=== PATIENT | female | born 1975 | race Caucasian/White ===

== ENCOUNTER 2019-11-16 11:20 | Emergency (ER) | payer SELFPAY ==
[2019-11-16] MEDS ORDERED: ONDANSETRON HCL INJ/PF 4 MG/2 ML SDV IV ONE (12:17)
[2019-11-16] MEDS ORDERED: KETOROLAC TROMETHAMINE INJ/PF 30 MG/1 ML SDV IV ONE (12:17)
--- NOTE | 2019-11-16 12:20 | ER Document Report ---
ED Medical Screen (RME) - General Chief Complaint: Abdominal Pain Stated Complaint: VOMITING/DIARRHEA Time Seen by Provider: 11/16/19 12:13 Mode of Arrival: Ambulatory Information source: Patient Notes: 44-year-old female with history of Crohn's and osteogenic imperfecta presents to the emergency department with complaints of left lower quad abdominal pain, nausea vomiting diarrhea for the past week. Reports she just moved here from [place]. She took a [employer] bus here and they lost all her luggage. She reports her medication was in her luggage. I have greeted and performed a rapid initial assessment of this patient. A comprehensive ED assessment and evaluation of the patient, analysis of test results and completion of the medical decision making process will be conducted by additional ED providers. TRAVEL OUTSIDE OF THE [place] IN LAST 30 DAYS: No - Related Data Allergies/Adverse Reactions: No Known Allergies Allergy (Unverified 11/16/19 12:13) Home Medications: Zofran. Effexor Past Medical History - Social History Chew tobacco use (# tins/day): No Frequency of alcohol use: None Drug Abuse: None Physical Exam - Vital signs Vitals: Temp Pulse Resp BP Pulse Ox 99.1 F 95 16 142/93 H 99 11/16/19 11:46 11/16/19 11:46 11/16/19 11:46 11/16/19 11:46 11/16/19 11:46 Course - Vital Signs Vital signs: Temp Pulse Resp BP Pulse Ox 99.1 F 95 16 142/93 H 99 11/16/19 11:46 11/16/19 11:46 11/16/19 11:46 11/16/19 11:46 11/16/19 11:46
[2019-11-16 12:36] LABS: ABSOLUTE BASOPHILS # (AUTO) 0.1 10^3/uL (0.0-0.2); ABSOLUTE EOSINOPHILS # (AUTO) 0.1 10^3/uL (0.0-0.6); ABSOLUTE LYMPHOCYTES (AUTO) 2.6 10^3/uL (0.5-4.7); ABSOLUTE MONOCYTES (AUTO) 0.7 10^3/uL (0.1-1.4); ABSOLUTE NEUT (AUTO) 5.8 10^3/uL (1.7-8.2); BASOPHILS % (AUTO) 1.1 % (0-2); EOSINOPHILS % (AUTO) 0.6 % (0-6); HEMOGLOBIN 15.3 g/dL (12.0-15.5); LYMPHOCYTES % (AUTO) 28.1 % (13-45); MEAN CORPUSCULAR HEMOGLOBIN 30.5 pg (27.0-33.4); MEAN CORPUSCULAR VOLUME 90 fl (80-97); MONOCYTES % (AUTO) 7.2 % (3-13); PLATELET COUNT 333 10^3/uL (150-450); RED BLOOD COUNT 5.01 10^6/uL (3.72-5.28); RED CELL DISTRIBUTION WIDTH 16.2 % (11.5-14.0); TOTAL CELLS COUNTED % (AUTO) 100 %; WHITE BLOOD COUNT 9.2 10^3/uL (4.0-10.5)
[2019-11-16 12:58] LABS: ALBUMIN 4.1 g/dL (3.5-5.0); ALKALINE PHOSPHATASE 84 U/L (38-126); ANION GAP 10 (5-19); ASPARTATE AMINO TRANSFERASE 44 U/L (14-36); BILIRUBIN,DIRECT 0.2 mg/dL (0.0-0.4); BILIRUBIN,TOTAL 0.5 mg/dL (0.2-1.3); BLOOD UREA NITROGEN 9 mg/dL (7-20); CALCIUM 9.6 mg/dL (8.4-10.2); CARBON DIOXIDE 23 mmol/L (22-30); CHLORIDE 104 mmol/L (98-107); GLUCOSE 91 mg/dL (75-110); POTASSIUM 4.1 mmol/L (3.6-5.0); TOTAL PROTEIN 7.2 g/dL (6.3-8.2)
[2019-11-16 13:08] LABS: APPEARANCE,URINE CLOUDY; BILIRUBIN,URINE NEGATIVE (NEGATIVE); COLOR,URINE YELLOW; GLUCOSE, URINE NEGATIVE (NEGATIVE); KETONES,URINE NEGATIVE (NEGATIVE); LEUKOCYTE ESTERASE,URINE TRACE (NEGATIVE); NITRITE,URINE NEGATIVE (NEGATIVE); PROTEIN,URINE 30 mg/dL (NEGATIVE); URINE SPECIFIC GRAVITY 1.016
[2019-11-16] MEDS ORDERED: NORMAL SALINE 1000 ML 1,000 ML IV ONE (13:33)
[2019-11-16] MEDS ORDERED: MORPHINE SULFATE 10 MG/ML INJ IV ONE (13:46)
--- NOTE | 2019-11-16 13:50 | ER Document Report ---
ED GI/ - General Chief Complaint: Abdominal Pain Stated Complaint: VOMITING/DIARRHEA Time Seen by Provider: 11/16/19 12:13 Primary Care Provider: NUSRAT RAMSEY MD [ACTIVE STAFF] - Follow up in 3-5 days Mode of Arrival: Ambulatory Notes: Patient is a 44-year-old female who presents to the emergency department with a chief complaint of left lower quadrant abdominal pain. Her symptoms started about a week ago. Patient has a history of Crohn's disease and her medications were lost in travel from [place] to here. Patient has been vomiting and states that there was a little bit of blood tinge in her vomitus. Patient states that she has not been able to keep anything down. Patient has history of a hysterectomy and 3 C-sections in the past. Denies any other abdominal surgeries. Patient is currently on Effexor, Prilosec, Zofran, and alprazolam, but states she lost her medications in travel. TRAVEL OUTSIDE OF THE [place] IN LAST 30 DAYS: No - Related Data Allergies/Adverse Reactions: No Known Allergies Allergy (Unverified 11/16/19 12:13) Home Medications: Zofran. Effexor Past Medical History - General Information source: Patient - Social History Smoking Status: Current Every Day Smoker Chew tobacco use (# tins/day): No Frequency of alcohol use: None Drug Abuse: None Family History: Reviewed & Not Pertinent Patient has suicidal ideation: No Patient has homicidal ideation: No Review of Systems - Review of Systems Notes: REVIEW OF SYSTEMS: CONSTITUTIONAL : Denies recent illness. Denies recent unintentional weight loss. Denies fever, chills, or sweats. EENT: Denies eye, ear, throat, or mouth pain, discharge, or symptoms. Denies nasal or sinus congestion. CARDIOVASCULAR: Denies chest pain. RESPIRATORY: Denies shortness of breath, cough, congestion, difficulty breathing, or wheezing. GASTROINTESTINAL: See HPI. GENITOURINARY: Denies difficulty urinating, burning, blood in urine, urgency or frequency. MUSCULOSKELETAL: Denies neck and back pain. Denies joint pain or swelling. SKIN: Denies rash, itchiness, or lesions HEMATOLOGIC : Denies easy bruising or bleeding. LYMPHATIC: Denies swollen, painful, enlarged glands. NEUROLOGICAL: Denies no numbness or tingling denies weakness. Denies headache. Denies altered mental status. Denies alteration in speech. PSYCHIATRIC: Denies stress, anxiety, alteration in sleep patterns, or dep ression. All other systems reviewed and negative. Physical Exam - Vital signs Vitals: Temp Pulse Resp BP Pulse Ox 99.1 F 95 16 142/93 H 99 11/16/19 11:46 11/16/19 11:46 11/16/19 11:46 11/16/19 11:46 11/16/19 11:46 - Notes Notes: PHYSICAL EXAMINATION: GENERAL: Appears well, healthy, well-nourished, no acute distress. HEAD: Normocephalic, atraumatic. EYES: PERRL, conjunctiva normal, all extraocular movements intact, sclera nonicteric ENT: Moist mucous membranes. NECK: Supple, no noticeable swelling, redness, rash. Normal range of motion. LUNGS: Equal breath sounds bilaterally and clear to auscultation. No wheezes rales or rhonchi. CARDIOVASCULAR: S1-S2, regular rate, regular rhythm. Radial pulses 2+, normal. ABDOMEN: Normoactive bowel sounds. Soft, mildly tender left lower quadrant abdomen, no guarding, no rebound tenderness, and no masses palpated. EXTREMITIES: Normal strength and range of motion, no pitting or edema. No cyanosis. NEUROLOGICAL: Moves all extremities upon command. Strength 5/5 in all extremities. PSYCH: Normal mood, normal affect. SKIN: Warm, dry. No rash, lesions, ulcerations noted. Normal skin turgor. Course - Re-evaluation Re-evalutation: 11/16/19 15:19 CT of the abdomen pelvis are negative for any acute findings. She has a fatty liver and right hip AVN, which is chronic. Patient denies any pain in that right hip. Urinalysis shows trace amount of leukocytes, but she also has 31 squamous cells, which is most likely contaminated specimen. Her sodium was 136 and this was corrected via IV fluids. Her AST is mildly elevated, most likely due to her fatty liver disease. Her chemistries are unremarkable. Patient states that she feels better after receiving fluids and pain medication. At this time, she will be referred to GI to help with her Crohn's disease. I will refill her Prilosec and Zofran. She is in agreement with this plan. I asked her if she was satisfied with her care and if she had any questions. She states that she is satisfied and she did not have any additional questions. Follow-up precautions were given. Verbal discharge instructions were given to the patient. They verbalized understanding. They are stable for discharge. - Vital Signs Vital signs: Temp Pulse Resp BP Pulse Ox 98 F 74 16 137/82 H 100 11/16/19 15:33 11/16/19 15:33 11/16/19 15:33 11/16/19 15:33 11/16/19 15:33 - Laboratory Result Diagrams: 11/16/19 12:29 11/16/19 12:29 Laboratory results interpreted by me: 11/16/19 11/16/19 11/16/19 12:29 12:29 12:39 RDW 16.2 H Sodium 136.8 L AST 44 H Urine Protein 30 H Urine Urobilinogen 2.0 H Ur Leukocyte Esterase TRACE H Discharge - Discharge Clinical Impression: Abdominal pain Qualifiers: Abdominal location: left lower quadrant Qualified Code(s): R10.32 - Left lower quadrant pain Condition: Stable Disposition: HOME, SELF-CARE Additional Instructions: You were seen today in the emergency department for left lower quadrant abdominal pain. Your CT did not show any abnormalities at this time. Please follow-up with GI. Please reestablish a primary care provider here in the area. Please continue your Prilosec daily and your Zofran as needed. Prescriptions: Omeprazole Magnesium [Prilosec Otc] 40 mg PO DAILY #60 tablet. Ondansetron [Zofran Odt 4 mg Tablet] 1 - 2 tab PO Q4H PRN #20 tab.rapdis PRN Reason: For Nausea/Vomiting Referrals: NUSRAT RAMSEY MD [ACTIVE STAFF] - Follow up in 3-5 days
--- NOTE | 2019-11-16 14:54 | RADIOLOGY REPORT (SQ) ---
EXAM DESCRIPTION: CT ABD/PELVIS WITH IV ONLY COMPLETED DATE/TIME: 11/16/2019 2:37 pm REASON FOR STUDY: HX CROHNS ABD PAIN N/V/D COMPARISON: None. TECHNIQUE: CT scan of the abdomen and pelvis performed using helical scanning technique with dynamic intravenous contrast injection. No oral contrast. Images reviewed with lung, soft tissue, and bone windows. Reconstructed coronal and sagittal MPR images reviewed. Delayed images for evaluation of the urinary system also acquired. All images stored on PACS. All CT scanners at this facility use dose modulation, iterative reconstruction, and/or weight based d osing when appropriate to reduce radiation dose to as low as reasonably achievable (ALARA). [facility]: Dose Right [facility]: CareDose [facility]: Dose Right [facility]: Teradose 4D [facility]: [place] CONTRAST TYPE AND DOSE: contrast/concentration: Isovue 350.00 mg/ml; Total Contrast Delivered: 100.0 ml; Total Saline Delivered: 72.0 ml RENAL FUNCTION: None required. The patient is less than 50 years old. RADIATION DOSE: CT Rad equipment meets quality standard of care and radiation dose reduction techniq ues were employed. CTDIvol: 15.6 - 19.8 mGy. DLP: 1989 mGy-cm.. LIMITATIONS: None. FINDINGS: LOWER CHEST: No significant findings. No nodules or infiltrates. LIVER: Diffusely fatty. SPLEEN: Normal size. No focal lesions. PANCREAS: No masses. No significant calcifications. No adjacent inflammation or peripancreatic fluid collections. Pancreatic duct not dilated. GALLBLADDER: No identified stones by CT criteria. No inflammatory changes to suggest cholecystitis. ADRENAL GLANDS: No significant masses or asymmetry. RIGHT KIDNEY AND URETER: No solid masses. No significant calcification. No hydronephrosis or hydroure ter. LEFT KIDNEY AND URETER: No solid masses. No significant calcification. No hydronephrosis or hydrouret er. AORTA AND VESSELS: No aneurysm. No dissection. Renal arteries, SMA, celiac without stenosis. RETROPERITONEUM: No retroperitoneal adenopathy, hemorrhage or masses. BOWEL AND PERITONEAL CAVITY: No masses or inflammatory changes. No free fluid or peritoneal masses. APPENDIX: Normal. PELVIS: No mass. No free fluid. Normal bladder. ABDOMINAL WALL: No masses. No hernias. BONES: No fracture or bone lesion. Subtle AVN in the right femoral head, no subchondral collapse. . OTHER: No other significant finding. IMPRESSION: 1. No acute abdominopelvic abnormality. 2. Fatty liver. 3. Right hip AVN. TECHNICAL DOCUMENTATION: JOB ID: [id number] Quality ID # [id number]: Final reports with documentation of one or more dose reduction techniques (e.g., Au tomated exposure control, adjustment of the mA and/or kV according to patient size, use of iterative reconstruction technique) 2010 [employer]- All Rights Reserved Reading location - IP/workstation name: [email or web address]
[2019-11-16 15:34] VITALS: BP 137/82
== END 2019-11-16 15:34 | disposition home or self-care (01) ==
LOC: ER 11:20
DX: R10.32 Left lower quadrant pain (principal); F17.200 Nicotine dependence, unspecified, uncomplicated; K76.0 Fatty (change of) liver, not elsewhere classified; Z90.710 Acquired absence of both cervix and uterus
CPT/HCPCS: 99284; 96361; 96374; 96375; 36415; 83690; 85025; 80053; 81001; 74177; J1885; J2270; J2405; J7030

== ENCOUNTER 2020-03-23 10:55 | Inpatient (IN) | payer SELFPAY ==
[2020-03-23 11:15] LABS: ABSOLUTE BASOPHILS # (AUTO) 0.1 10^3/uL (0.0-0.2); ABSOLUTE LYMPHOCYTES (AUTO) 2.9 10^3/uL (0.5-4.7); ABSOLUTE MONOCYTES (AUTO) 0.8 10^3/uL (0.1-1.4); ABSOLUTE NEUT (AUTO) 7.1 10^3/uL (1.7-8.2); BASOPHILS % (AUTO) 0.7 % (0-2); EOSINOPHILS % (AUTO) 0.1 % (0-6); HEMATOCRIT 40.4 % (36.0-47.0); HEMOGLOBIN 14.2 g/dL (12.0-15.5); LYMPHOCYTES % (AUTO) 26.4 % (13-45); MEAN CORPUSCULAR HEMOGLOBIN 32.2 pg (27.0-33.4); MEAN CORPUSCULAR VOLUME 92 fl (80-97); MONOCYTES % (AUTO) 7.3 % (3-13); PLATELET COUNT 414 10^3/uL (150-450); RED CELL DISTRIBUTION WIDTH 14.8 % (11.5-14.0); SEGMENTED NEUTROPHILS % (AUTO) 65.5 % (42-78); TOTAL CELLS COUNTED % (AUTO) 100 %; WHITE BLOOD COUNT 10.9 10^3/uL (4.0-10.5)
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
[2020-03-23 11:22] LABS: INTERNATIONAL RATION (INR) 1.01; PROTHROMBIN TIME 13.3 SEC (11.4-15.4)
[2020-03-23 11:23] LABS: PARTIAL THROMBOPLASTIN TIME 26.1 SEC (23.5-35.8)
[2020-03-23] MEDS ORDERED: ONDANSETRON HCL INJ/PF 4 MG/2 ML SDV IV ONE (11:31)
[2020-03-23] MEDS ORDERED: MORPHINE SULFATE 10 MG/ML INJ IV ONE ×2 (11:31→14:34)
[2020-03-23 11:35] LABS: ALCOHOL 24 mg/dL (NONE DETECTED); ALKALINE PHOSPHATASE 133 U/L (38-126); ASPARTATE AMINO TRANSFERASE 148 U/L (14-36); BILIRUBIN,TOTAL 0.3 mg/dL (0.2-1.3); CALCIUM 9.9 mg/dL (8.4-10.2); CREATINE KINASE 219 U/L (30-135); GLUCOSE 133 mg/dL (75-110); POTASSIUM 4.8 mmol/L (3.6-5.0); TOTAL PROTEIN 7.3 g/dL (6.3-8.2)
[2020-03-23 11:39] LABS: CARBON DIOXIDE 17 mmol/L (22-30); CHLORIDE 94 mmol/L (98-107)
[2020-03-23 11:40] LABS: BLOOD UREA NITROGEN < 2 mg/dL (7-20)
[2020-03-23 11:41] LABS: ANION GAP 20 (5-19)
[2020-03-23 11:46] LABS: CREATINE KINASE MB 2.85 ng/mL (<4.55)
[2020-03-23 11:49] LABS: URINE AMPHETAMINES SCREEN NEGATIVE; URINE BARBITURATES SCREEN NEGATIVE; URINE BENZODIAZEPINES SCREEN NEGATIVE; URINE COCAINE SCREEN NEGATIVE; URINE MARIJUANA (THC) SCREEN NEGATIVE; URINE METHADONE SCREEN NEGATIVE; URINE PHENCYCLIDINE SCREEN NEGATIVE
[2020-03-23 11:50] LABS: TROPONIN I < 0.012 ng/mL
--- NOTE | 2020-03-23 12:01 | RADIOLOGY REPORT (SQ) ---
EXAM DESCRIPTION: PELVIS AP IMAGES COMPLETED DATE/TIME: 03/23/2020 11:53 am REASON FOR STUDY: Fall with right buttock pain COMPARISON: None. NUMBER OF VIEWS: One view TECHNIQUE: AP Pelvis LIMITATIONS: None. FINDINGS: MINERALIZATION: Normal. HIPS: No acute fracture or dislocation. No worrisome bone lesions. PELVIS AND SACRUM: No acute fracture or dislocation. No worrisome bone lesions. PUBIS AND ISCHIUM: No acute fracture. LOWER LUMBAR SPINE: No significant findings as visualized. SOFT TISSUES: No findings. OTHER: Right pelvic phleboliths. IMPRESSION: NEGATIVE STUDY OF THE PELVIS. COMMENT: Pelvic fractures are often occult on plain radiographs. If strong clinical suspicion for f racture, recommend CT or MR. TECHNICAL DOCUMENTATION: JOB ID: [id number] 2010 [employer]- All Rights Reserved Reading location - IP/workstation name: [email or web address]
--- NOTE | 2020-03-23 12:01 | RADIOLOGY REPORT (SQ) ---
EXAM DESCRIPTION: CHEST SINGLE VIEW IMAGES COMPLETED DATE/TIME: 03/23/2020 11:53 am REASON FOR STUDY: Chest pain COMPARISON: None. EXAM PARAMETERS: NUMBER OF VIEWS: One view. TECHNIQUE: Single frontal radiographic view of the chest acquired. RADIATION DOSE: NA LIMITATIONS: None. FINDINGS: LUNGS AND PLEURA: No opacities, masses or pneumothorax. No pleural effusion. MEDIASTINUM AND HILAR STRUCTURES: No masses. Contour normal. HEART AND VASCULAR STRUCTURES: Heart normal in size. Normal vasculature. BONES: No acute findings. HARDWARE: None in the chest. OTHER: No other significant finding. IMPRESSION: NO ACUTE RADIOGRAPHIC FINDING IN THE CHEST. TECHNICAL DOCUMENTATION: JOB ID: [id number] 2010 [employer]- All Rights Reserved Reading location - IP/workstation name: [email or web address]
[2020-03-23] MEDS ORDERED: NORMAL SALINE 1000 ML 1,000 ML IV ONE (12:25)
[2020-03-23] MEDS ORDERED: KETOROLAC TROMETHAMINE INJ/PF 30 MG/1 ML SDV IV ONE (13:30)
[2020-03-23] MEDS ORDERED: PROCHLORPERAZINE EDISYLATE INJ 10 MG/2 ML VIAL IV ONE (13:32)
[2020-03-23] MEDS ORDERED: LORAZEPAM INJ 2 MG/1 ML VIAL IV ONE (14:07)
[2020-03-23] MEDS ORDERED: PROMETHAZINE HCL INJ 25 MG/1 ML VIAL IV ONE (14:33)
[2020-03-23 15:00] LABS: APPEARANCE,URINE CLEAR; BILIRUBIN,URINE NEGATIVE (NEGATIVE); COLOR,URINE STRAW; GLUCOSE, URINE NEGATIVE (NEGATIVE); KETONES,URINE NEGATIVE (NEGATIVE); PROTEIN,URINE NEGATIVE (NEGATIVE); URINE SPECIFIC GRAVITY 1.003; UROBILINOGEN,URINE NEGATIVE mg/dL (<2.0)
--- NOTE | 2020-03-23 15:22 | RADIOLOGY REPORT (SQ) ---
EXAM DESCRIPTION: CTA CHEST IMAGES COMPLETED DATE/TIME: 03/23/2020 3:06 pm REASON FOR STUDY: Chest pain/tachycardia COMPARISON: None. TECHNIQUE: CT scan of the chest performed using helical scanning technique with dynamic intravenous contrast injection. Images reviewed with lung, soft tissue and bone windows. Reconstructed coronal and sagittal MPR images reviewed. Additional 3 dimensional post-processing performed to develop Maximal Intensity Projection images (MT P). All images stored on PACS. All CT scanners at this facility use dose modulation, iterative reconstruction, and/or weight based d osing when appropriate to reduce radiation dose to as low as reasonably achievable (ALARA). [facility]: Dose Right [facility]: CareDose [facility]: Dose Right [facility]: Teradose 4D [facility]: [employer] CONTRAST TYPE AND DOSE: contrast/concentration: Isovue 350.00 mg/ml; Total Contrast Delivered: 97.0 ml; Total Saline Delivered: 70.0 ml Contrast bolus adequate for pulmonary arteries and aorta. RENAL FUNCTION: BUN 2 creatinine 0.5 RADIATION DOSE: CT Rad equipment meets quality standard of care and radiation dose reduction techniq ues were employed. CTDIvol: 6.6 - 23.2 mGy. DLP: 2889 mGy-cm. . LIMITATIONS: None. FINDINGS: LUNGS AND PLEURA: No masses, infiltrates, or pneumothorax. No pleural effusions or pleura l calcifications. AORTA AND GREAT VESSELS: No aneurysm. No dissection. HEART: No pericardial effusion. No significant coronary artery calcifications. PULMONARY ARTERIES: No emboli visualized in the main pulmonary arteries or the segmental branches. HILAR AND MEDIASTINAL STRUCTURES: No identified masses or abnormal nodes. HARDWARE: None in the chest. UPPER ABDOMEN: See separate report of the CT of the abdomen. THYROID AND OTHER SOFT TISSUES: No masses. No adenopathy. BONES: No acute or significant finding. 3D MIPS: Confirm above findings. OTHER: No other significant finding. IMPRESSION: There is no pulmonary embolus. There is no aortic aneurysm or dissection. No acute fin ding in the thorax. COMMENT: Quality ID # 436: Final reports with documentation of one or more dose reduction techniques (e.g., Automated exposure control, adjustment of the mA and/or kV according to patient size, use of iterative reconstruction technique) TECHNICAL DOCUMENTATION: JOB ID: [id number] 2010 [employer]- All Rights Reserved Reading location - IP/workstation name: [email or web address]
--- NOTE | 2020-03-23 15:35 | RADIOLOGY REPORT (SQ) ---
EXAM DESCRIPTION: CT ABD/PELVIS WITH IV ONLY IMAGES COMPLETED DATE/TIME: 03/23/2020 3:06 pm REASON FOR STUDY: Trauma COMPARISON: 11/16/2019 TECHNIQUE: CT scan of the abdomen and pelvis performed using helical scanning technique with dynamic intravenous contrast injection. No oral contrast. Images reviewed with lung, soft tissue, and bone windows. Reconstructed coronal and sagittal MPR images reviewed. Delayed images for evaluation of the urinary system also acquired. All images stored on PACS. All CT scanners at this facility use dose modulation, iterative reconstruction, and/or weight based d osing when appropriate to reduce radiation dose to as low as reasonably achievable (ALARA). [facility]: Dose Right [facility]: CareDose [facility]: Dose Right [facility]: Teradose 4D [facility]: [employer] CONTRAST TYPE AND DOSE: 97 mL Omnipaque 350- low osmolar. RENAL FUNCTION: BUN 2 creatinine 0.5 RADIATION DOSE: . LIMITATIONS: None. FINDINGS: LOWER CHEST: See separate report of the CT of the chest. LIVER: The liver is diffusely hypoattenuating. No masses. SPLEEN: Normal size. No focal lesions. PANCREAS: No masses. No significant calcifications. No adjacent inflammation or peripancreatic fluid collections. Pancreatic duct not dilated. GALLBLADDER: No identified stones by CT criteria. No inflammatory changes to suggest cholecystitis. ADRENAL GLANDS: No significant masses or asymmetry. RIGHT KIDNEY AND URETER: Lobulated kidney. No solid masses. No significant calcifications. No hy dronephrosis or hydroureter. LEFT KIDNEY AND URETER: Lobulated kidney. No solid masses. No significant calcifications. No hydr onephrosis or hydroureter. AORTA AND VESSELS: No aneurysm. No dissection. Renal arteries, SMA, celiac without stenosis. RETROPERITONEUM: No retroperitoneal adenopathy, hemorrhage or masses. BOWEL AND PERITONEAL CAVITY: No obvious bowel mass or inflammation. APPENDIX: Not identified. PELVIS: No mass. No free fluid. Normal bladder. ABDOMINAL WALL: No masses. No hernias. BONES: No significant or acute findings. OTHER: No other significant finding.2 IMPRESSION: Hepatic steatosis. No other significant finding in the abdomen or pelvis. TECHNICAL DOCUMENTATION: JOB ID: [id number] Quality ID # [id number]: Final reports with documentation of one or more dose reduction techniques (e.g., Au tomated exposure control, adjustment of the mA and/or kV according to patient size, use of iterative reconstruction technique) 2010 [employer]- All Rights Reserved Reading location - IP/workstation name: [email or web address]
[2020-03-23] MEDS ORDERED: MAGNESIUM HYDROXIDE SUSP 30 ML UDCUP PO PRN (17:11)
[2020-03-23] MEDS ORDERED: MAG HYDROX/AL HYDROX/SIMETH SUSP 30 ML UDCUP PO PRN (17:11)
[2020-03-23] MEDS ORDERED: PROMETHAZINE HCL INJ 25 MG/1 ML VIAL IV PRN (17:11)
[2020-03-23] MEDS ORDERED: NORMAL SALINE 1000 ML 1,000 ML IV PRN (17:11)
[2020-03-23] MEDS ORDERED: BISACODYL 5 MG TABEC PO PRN (17:22)
[2020-03-23] MEDS ORDERED: LORAZEPAM INJ 2 MG/1 ML VIAL IV PRN (17:30)
[2020-03-23 17:39] LABS: ARTERIAL BLOOD BASE EXCESS -2.7 mmol/L; ARTERIAL BLOOD H2CO3 0.95 mmol/L (1.05-1.35); ARTERIAL BLOOD HCO3 20.6 mmol/L (20-24); ARTERIAL BLOOD PCO2 31.6 mmHg (35-45); ARTERIAL BLOOD PH 7.43 (7.35-7.45); ARTERIAL BLOOD PO2 105.4 mmHg (80-100); ARTERIAL BLOOD TOTAL CO2 21.6 mmol/L (21-25)
[2020-03-23] MEDS ORDERED: TRAZODONE HCL 50 MG TABLET PO PRN (17:41)
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
[2020-03-23 17:51] LABS: ARTERIAL BLOOD FIO2 ROOM AIR
[2020-03-23] MEDS ORDERED: NORMAL SALINE 1000 ML 1,000 ML with POTASSIUM CHLORIDE 20 MEQ, MAGNESIUM SULFATE 8 MEQ,... IV SCH ×10 (18:00)
[2020-03-23 19:00] LABS: ANION GAP 10 (5-19); BLOOD UREA NITROGEN 3 mg/dL (7-20); CALCIUM 8.9 mg/dL (8.4-10.2); CARBON DIOXIDE 26 mmol/L (22-30); CHLORIDE 96 mmol/L (98-107); GLUCOSE 80 mg/dL (75-110); POTASSIUM 4.9 mmol/L (3.6-5.0); SALICYLATE 12.4 mg/dL (2.0-20.0)
[2020-03-23] MEDS: OXYCODONE-ACETAMINOPHEN 5-325 MG TABLET PO PRN (19:18)
[2020-03-23] MEDS: PANTOPRAZOLE SODIUM 40 MG VIAL IV SCH (21:34)
[2020-03-23 23:33] LABS: ALBUMIN 2.8 g/dL (3.5-5.0); ALKALINE PHOSPHATASE 90 U/L (38-126); ANION GAP 7 (5-19); ASPARTATE AMINO TRANSFERASE 96 U/L (14-36); BILIRUBIN,TOTAL 0.3 mg/dL (0.2-1.3); BLOOD UREA NITROGEN 6 mg/dL (7-20); CALCIUM 8.7 mg/dL (8.4-10.2); CARBON DIOXIDE 22 mmol/L (22-30); CHLORIDE 101 mmol/L (98-107); GLUCOSE 104 mg/dL (75-110); POTASSIUM 4.7 mmol/L (3.6-5.0); TOTAL PROTEIN 5.6 g/dL (6.3-8.2)
[2020-03-24] MEDS: OXYCODONE-ACETAMINOPHEN 5-325 MG TABLET PO PRN ×5 (05:18→23:24)
[2020-03-24 06:26] LABS: ABSOLUTE EOSINOPHILS # (AUTO) 0.1 10^3/uL (0.0-0.6); ABSOLUTE LYMPHOCYTES (AUTO) 2.4 10^3/uL (0.5-4.7); ABSOLUTE MONOCYTES (AUTO) 0.4 10^3/uL (0.1-1.4); ABSOLUTE NEUT (AUTO) 3.9 10^3/uL (1.7-8.2); BASOPHILS % (AUTO) 0.5 % (0-2); EOSINOPHILS % (AUTO) 0.8 % (0-6); HEMATOCRIT 30.7 % (36.0-47.0); LYMPHOCYTES % (AUTO) 35.7 % (13-45); MEAN CORPUSCULAR HEMOGLOBIN 32.4 pg (27.0-33.4); MEAN CORPUSCULAR HGB CONC 35.1 g/dL (32.0-36.0); MEAN CORPUSCULAR VOLUME 92 fl (80-97); MONOCYTES % (AUTO) 5.5 % (3-13); PLATELET COUNT 247 10^3/uL (150-450); RED BLOOD COUNT 3.33 10^6/uL (3.72-5.28); RED CELL DISTRIBUTION WIDTH 15.2 % (11.5-14.0); SEGMENTED NEUTROPHILS % (AUTO) 57.5 % (42-78); TOTAL CELLS COUNTED % (AUTO) 100 %; WHITE BLOOD COUNT 6.7 10^3/uL (4.0-10.5)
[2020-03-24 06:28] LABS: HEMOGLOBIN 10.8 g/dL (12.0-15.5)
[2020-03-24 06:50] LABS: ANION GAP 5 (5-19); BLOOD UREA NITROGEN 7 mg/dL (7-20); CALCIUM 8.3 mg/dL (8.4-10.2); CARBON DIOXIDE 26 mmol/L (22-30); CHLORIDE 101 mmol/L (98-107); GLUCOSE 83 mg/dL (75-110); POTASSIUM 4.9 mmol/L (3.6-5.0)
--- NOTE | 2020-03-24 07:44 | EKG REPORT ---
SEVERITY:- OTHERWISE NORMAL ECG - SINUS TACHYCARDIA : Confirmed by: Halley Valle MD 24-Mar-2020 07:42:51
[2020-03-24] MEDS: PANTOPRAZOLE SODIUM 40 MG VIAL IV SCH ×2 (09:05→21:08)
[2020-03-24] MEDS: SENNOSIDES/DOCUSATE 8.6-50 MG 1 EACH TABLET PO SCH (09:05)
[2020-03-24] MEDS ORDERED: MORPHINE SULFATE 10 MG/ML INJ ONE (10:34)
[2020-03-24] MEDS ORDERED: MORPHINE SULFATE 10 MG/ML INJ IV ONE (11:00)
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
[2020-03-24] MEDS: SULFAMETHOXAZOLE/TRIMETHOPRIM 800-160 MG TABLET PO SCH ×2 (16:06→21:10)
[2020-03-24] MEDS: THIAMINE HCL 100 MG TABLET PO SCH (16:06)
[2020-03-24 17:01] LABS: ALBUMIN 2.9 g/dL (3.5-5.0); ALKALINE PHOSPHATASE 99 U/L (38-126); ASPARTATE AMINO TRANSFERASE 82 U/L (14-36); BILIRUBIN,TOTAL 0.5 mg/dL (0.2-1.3); TOTAL PROTEIN 5.4 g/dL (6.3-8.2)
[2020-03-24] MEDS: KETOROLAC TROMETHAMINE INJ/PF 30 MG/1 ML SDV IV PRN (21:09)
[2020-03-24] MEDS ORDERED: OLANZAPINE 5 MG TABLET PO SCH (22:00)
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
[2020-03-25] MEDS: OXYCODONE-ACETAMINOPHEN 5-325 MG TABLET PO PRN ×2 (04:57→09:39)
[2020-03-25 05:41] LABS: ABSOLUTE EOSINOPHILS # (AUTO) 0.1 10^3/uL (0.0-0.6); ABSOLUTE MONOCYTES (AUTO) 0.2 10^3/uL (0.1-1.4); ABSOLUTE NEUT (AUTO) 2.6 10^3/uL (1.7-8.2); BASOPHILS % (AUTO) 0.5 % (0-2); HEMATOCRIT 28.3 % (36.0-47.0); HEMOGLOBIN 9.8 g/dL (12.0-15.5); LYMPHOCYTES % (AUTO) 40.9 % (13-45); MEAN CORPUSCULAR HEMOGLOBIN 32.3 pg (27.0-33.4); MEAN CORPUSCULAR HGB CONC 34.5 g/dL (32.0-36.0); MEAN CORPUSCULAR VOLUME 94 fl (80-97); PLATELET COUNT 219 10^3/uL (150-450); RED BLOOD COUNT 3.02 10^6/uL (3.72-5.28); RED CELL DISTRIBUTION WIDTH 15.4 % (11.5-14.0); SEGMENTED NEUTROPHILS % (AUTO) 51.6 % (42-78); TOTAL CELLS COUNTED % (AUTO) 100 %
[2020-03-25 06:07] LABS: ANION GAP 6 (5-19); BLOOD UREA NITROGEN 12 mg/dL (7-20); CALCIUM 8.1 mg/dL (8.4-10.2); CARBON DIOXIDE 25 mmol/L (22-30); CHLORIDE 102 mmol/L (98-107); GLUCOSE 96 mg/dL (75-110); POTASSIUM 4.1 mmol/L (3.6-5.0)
[2020-03-25] MEDS: KETOROLAC TROMETHAMINE INJ/PF 30 MG/1 ML SDV IV PRN (06:56)
[2020-03-25] MEDS: SENNOSIDES/DOCUSATE 8.6-50 MG 1 EACH TABLET PO SCH (09:24)
[2020-03-25] MEDS: PANTOPRAZOLE SODIUM 40 MG VIAL IV SCH (09:41)
[2020-03-25] MEDS: THIAMINE HCL 100 MG TABLET PO SCH (09:41)
[2020-03-25] MEDS: SULFAMETHOXAZOLE/TRIMETHOPRIM 800-160 MG TABLET PO SCH (09:41)
[2020-03-25] MEDS ORDERED: MULTIVITAMIN TABLET PO SCH (10:00)
[2020-03-25 11:16] VITALS: BP 134/74
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
== END 2020-03-25 11:34 | disposition home or self-care (01) | DRG 923 ==
LOC: ER 10:55 → EH 16:33 → 3N 20:10
PROVIDERS: ADMIT Hospitalist; ATTEND Hospitalist
DX: T74.11XA Adult physical abuse, confirmed, initial encounter (principal); E87.2 Acidosis; E87.1 Hypo-osmolality and hyponatremia; N39.0 Urinary tract infection, site not specified; K92.1 Melena; K50.90 Crohn's disease, unspecified, without complications; T39.091A Poisoning by salicylates, accidental (unintentional), initial encounter; S30.1XXA Contusion of abdominal wall, initial encounter; S80.12XA Contusion of left lower leg, initial encounter; S00.12XA Contusion of left eyelid and periocular area, initial encounter; S00.11XA Contusion of right eyelid and periocular area, initial encounter; R74.0 Nonspecific elevation of levels of transaminase and lactic acid dehydrogenase [LDH]; T51.0X1A Toxic effect of ethanol, accidental (unintentional), initial encounter; B96.20 Unspecified Escherichia coli [E. coli] as the cause of diseases classified elsewhere; E66.9 Obesity, unspecified; F10.20 Alcohol dependence, uncomplicated; S30.0XXA Contusion of lower back and pelvis, initial encounter; F17.200 Nicotine dependence, unspecified, uncomplicated; F41.9 Anxiety disorder, unspecified; M54.9 Dorsalgia, unspecified; R11.2 Nausea with vomiting, unspecified; I25.10 Atherosclerotic heart disease of native coronary artery without angina pectoris; Y92.9 Unspecified place or not applicable; Z79.899 Other long term (current) drug therapy; Z91.02 Food additives allergy status
CPT/HCPCS: 36415; 71045; 71275; 72170; 74177; 80048; 80053; 80076; 80307; 81001; 82550; 82553; 82803; 83605; 83690; 83735; 84484; 85025; 85610; 85730; 86850; 86900; 86901; 87040; 87070; 87086; 87088; 87186; 93005; 93010; 96361; 96374; 96375; 96376; 99285; C9113; J0780; J1885; J2060; J2270; J2405; J2550; J3411; J3475; J3480; J3490; J7030

== ENCOUNTER 2020-03-31 09:39 | Emergency (ER) | payer SELFPAY ==
[2020-03-31] MEDS ORDERED: LORAZEPAM INJ 2 MG/1 ML VIAL IV ONE (09:58)
[2020-03-31] MEDS ORDERED: NORMAL SALINE 1000 ML 1,000 ML IV ONE ×3 (09:59→13:08)
[2020-03-31 10:06] LABS: ABSOLUTE LYMPHOCYTES (AUTO) 2.4 10^3/uL (0.5-4.7); ABSOLUTE MONOCYTES (AUTO) 0.6 10^3/uL (0.1-1.4); BASOPHILS % (AUTO) 0.7 % (0-2); EOSINOPHILS % (AUTO) 0.7 % (0-6); HEMATOCRIT 35.8 % (36.0-47.0); HEMOGLOBIN 12.1 g/dL (12.0-15.5); MEAN CORPUSCULAR HEMOGLOBIN 32.2 pg (27.0-33.4); MEAN CORPUSCULAR HGB CONC 33.9 g/dL (32.0-36.0); MEAN CORPUSCULAR VOLUME 95 fl (80-97); MONOCYTES % (AUTO) 11.4 % (3-13); PLATELET COUNT 352 10^3/uL (150-450); RED BLOOD COUNT 3.77 10^6/uL (3.72-5.28); RED CELL DISTRIBUTION WIDTH 15.8 % (11.5-14.0); SEGMENTED NEUTROPHILS % (AUTO) 40.2 % (42-78); TOTAL CELLS COUNTED % (AUTO) 100 %
[2020-03-31 10:12] LABS: INTERNATIONAL RATION (INR) 0.91; PROTHROMBIN TIME 12.2 SEC (11.4-15.4)
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
[2020-03-31 10:25] LABS: VENOUS BLOOD HCO3 24.5 mmol/L (20-32); VENOUS BLOOD PCO2 28.9 mmHg (35-63); VENOUS BLOOD PH 7.55 (7.30-7.42)
[2020-03-31 10:28] LABS: ALBUMIN 3.5 g/dL (3.5-5.0); ALCOHOL 129 mg/dL (NONE DETECTED); ALKALINE PHOSPHATASE 94 U/L (38-126); ANION GAP 13 (5-19); ASPARTATE AMINO TRANSFERASE 95 U/L (14-36); BILIRUBIN,TOTAL 0.7 mg/dL (0.2-1.3); BLOOD UREA NITROGEN 6 mg/dL (7-20); CALCIUM 8.5 mg/dL (8.4-10.2); CARBON DIOXIDE 25 mmol/L (22-30); CHLORIDE 95 mmol/L (98-107); GLUCOSE 139 mg/dL (75-110); POTASSIUM 3.7 mmol/L (3.6-5.0); TOTAL PROTEIN 6.5 g/dL (6.3-8.2)
[2020-03-31 10:29] LABS: ACETAMINOPHEN < 10 ug/mL (10-30); SALICYLATE < 1.0 mg/dL (2.0-20.0)
[2020-03-31] MEDS ORDERED: METOCLOPRAMIDE HCL INJ/PF 10 MG/2 ML SDV IV ONE (10:39)
--- NOTE | 2020-03-31 10:40 | RADIOLOGY REPORT (SQ) ---
EXAM DESCRIPTION: CHEST SINGLE VIEW IMAGES COMPLETED DATE/TIME: 03/31/2020 10:22 am REASON FOR STUDY: cp COMPARISON: AP view of the chest from 03/23/2020. EXAM PARAMETERS: NUMBER OF VIEWS: One view. TECHNIQUE: An AP view of the chest was obtained. RADIATION DOSE: NA LIMITATIONS: None. FINDINGS: LUNGS AND PLEURA: No consolidation, pleural effusion or pneumothorax. MEDIASTINUM AND HILAR STRUCTURES: No mediastinal or hilar contour abnormality. HEART AND VASCULAR STRUCTURES: The cardiac silhouette and pulmonary vasculature are within normal sandoval its. BONES: No acute findings. HARDWARE: None in the chest. OTHER: No other finding. IMPRESSION: No acute cardiopulmonary process. TECHNICAL DOCUMENTATION: JOB ID: [id number] 2010 [employer]- All Rights Reserved Reading location - IP/workstation name: [email or web address]
[2020-03-31 10:43] LABS: AMORPHOUS SEDIMENT,URINE TRACE /HPF; APPEARANCE,URINE CLOUDY; BILIRUBIN,URINE NEGATIVE (NEGATIVE); COLOR,URINE YELLOW; GLUCOSE, URINE NEGATIVE (NEGATIVE); KETONES,URINE NEGATIVE (NEGATIVE); PROTEIN,URINE 30 mg/dL (NEGATIVE); URINE SPECIFIC GRAVITY 1.012; UROBILINOGEN,URINE NEGATIVE mg/dL (<2.0)
[2020-03-31] MEDS ORDERED: MORPHINE SULFATE 10 MG/ML INJ IV ONE (11:11)
[2020-03-31] MEDS ORDERED: ONDANSETRON HCL INJ/PF 4 MG/2 ML SDV IV ONE (11:18)
--- NOTE | 2020-03-31 13:19 | RADIOLOGY REPORT (SQ) ---
EXAM DESCRIPTION: CT ABD/PELVIS WITH IV ONLY IMAGES COMPLETED DATE/TIME: 03/31/2020 12:56 pm REASON FOR STUDY: pain right flank/large hematoma COMPARISON: CT of the abdomen and pelvis from 03/23/2020. TECHNIQUE: CT scan of the abdomen and pelvis performed using helical scanning technique with dynamic intravenous contrast injection. No oral contrast. Images reviewed with lung, soft tissue, and bone windows. Reconstructed coronal and sagittal MPR images reviewed. Delayed images for evaluation of the urinary system also acquired. All images stored on PACS. All CT scanners at this facility use dose modulation, iterative reconstruction, and/or weight based d osing when appropriate to reduce radiation dose to as low as reasonably achievable (ALARA). [facility]: Dose Right [facility]: CareDose [facility]: Dose Right [facility]: Teradose 4D [facility]: Coffee Meets Bagel CONTRAST TYPE AND DOSE: Contrast/concentration: Isovue 350.00 mg/ml; Total Contrast Delivered: 90.0 ml; Total Saline Delivered: 70.0 ml RENAL FUNCTION: GFR > 60. RADIATION DOSE: CT Rad equipment meets quality standard of care and radiation dose reduction techniq ues were employed. CTDIvol: 15.3 - 19.5 mGy. DLP: 1907 mGy-cm. LIMITATIONS: None. FINDINGS: LOWER CHEST: No acute findings. LIVER: Hepatic steatosis. The portal veins are patent. There is no hepatic mass. SPLEEN: No splenomegaly or splenic mass. PANCREAS: No acute abnormality of the pancreas. GALLBLADDER: No abnormality that is apparent on CT. ADRENAL GLANDS: No mass or asymmetry. RIGHT KIDNEY AND URETER: No solid masses. No calcifications. No hydronephrosis or hydroureter. LEFT KIDNEY AND URETER: No solid masses. No calcifications. No hydronephrosis or hydroureter. AORTA AND VESSELS: No aneurysm or dissection of the abdominal aorta. RETROPERITONEUM: No retroperitoneal adenopathy, hemorrhage or mass. BOWEL AND PERITONEAL CAVITY: Colonic diverticulosis without diverticulitis. There is no bowel obstru ction, bowel wall thickening or pericolonic/ perienteric inflammation. There is no mesenteric adenop athy, free intraperitoneal fluid or mesenteric/ omental inflammation. APPENDIX: Normal. PELVIS: No abnormality. ABDOMINAL WALL: Subcutaneous hematoma in the right gluteal region that has decreased in size from 03/05 (it measures 6.1 x 2.3 cm compared to 7.4 x 3.2 cm on the prior CT). The diffuse stranding of the subcutaneous fat in the right gluteal region is unchanged. BONES: No acute fracture. OTHER: No other finding. IMPRESSION: 1. Subcutaneous hematoma in the right gluteal region that has decreased in size from (is measures 6.1 x 2.3 cm compared to 7.4 x 3.2 cm on the prior CT). 2. Hepatic steatosis. 3. Colonic diverticulosis without diverticulitis. TECHNICAL DOCUMENTATION: JOB ID: [id number] Quality ID # [id number]: Final reports with documentation of one or more dose reduction techniques (e.g., Au tomated exposure control, adjustment of the mA and/or kV according to patient size, use of iterative reconstruction technique) 2010 [employer]- All Rights Reserved Reading location - IP/workstation name: [email or web address]
[2020-03-31] MEDS ORDERED: LORAZEPAM 1 MG TABLET PO ONE (14:17)
[2020-03-31 14:35] VITALS: BP 152/108
--- NOTE | 2020-03-31 19:16 | EKG REPORT ---
SEVERITY:- BORDERLINE ECG - SINUS TACHYCARDIA BORDERLINE INFERIOR Q WAVES : Confirmed by: Alexx Castano MD 31-Mar-2020 19:15:26
== END 2020-03-31 14:32 | disposition home or self-care (01) ==
LOC: ER 09:39
DX: S30.1XXA Contusion of abdominal wall, initial encounter (principal); S80.11XA Contusion of right lower leg, initial encounter; S30.0XXA Contusion of lower back and pelvis, initial encounter; S20.229A Contusion of unspecified back wall of thorax, initial encounter; M25.559 Pain in unspecified hip; Y09 Assault by unspecified means; R07.9 Chest pain, unspecified; R19.7 Diarrhea, unspecified; F10.10 Alcohol abuse, uncomplicated; R00.0 Tachycardia, unspecified; R51 Headache; R53.81 Other malaise; R53.1 Weakness; R05 Cough; R06.02 Shortness of breath; F17.200 Nicotine dependence, unspecified, uncomplicated; Z91.048 Other nonmedicinal substance allergy status; E86.0 Dehydration
CPT/HCPCS: 93005; 99284; 96361; 96374; 96375; 36415; 87040; 82962; 80307 ×3; 83605; 83690; 85025; 85610; 81025; 80053; 81001; 84484; 82803; 71045; 74177; 93010; J2765; J2270; J2060; J2405; J7030

== ENCOUNTER 2020-04-09 13:55 | Emergency (ER) | payer SELFPAY ==
[2020-04-09] MEDS ORDERED: KETOROLAC TROMETHAMINE INJ/PF 30 MG/1 ML SDV IV ONE (15:41)
[2020-04-09] MEDS ORDERED: NORMAL SALINE 1000 ML 1,000 ML IV ONE ×2 (15:52→16:58)
--- NOTE | 2020-04-09 15:57 | ER Document Report ---
ED General - General Chief Complaint: Altered Mental Status Stated Complaint: ALTERED MENTAL STATUS Time Seen by Provider: 04/09/20 15:31 Notes: CHIEF COMPLAINT: Abdominal pain HPI: Patient is a poor historian. History is obtained from the patient but also obtained from EMS notes. A 45-year-old female found in her vehicle intoxicated today by EMS. Patient apparently told EMS that she is homeless and has been living in her car and has been drinking wine since yesterday. Patient tells me that she is only had a small amount of alcohol to drink will not clarify the amount, she denies any drug use. Patient states she has a history of Crohn's disease has not had a flareup in several years and complaining about right-sided abdominal pain. No vomiting no definitive fever ROS: See HPI - all other systems were reviewed and are otherwise negative Constitutional: no fever Eyes: no drainage, no blurred vision ENT: no runny nose, no sore throat Cardiovascular: no chest pain Resp: no SOB, no cough GI: no vomiting, no diarrhea, positive abdominal pain : no dysuria Integumentary: no rash Allergy: no hives Musculoskeletal: no extremity pain or swelling Neurological: no numbness/tingling, no weakness MEDICATIONS: I agree with the patient medications as charted by the RN. ALLERGIES: I agree with the allergies as charted by the RN. PAST MEDICAL HISTORY/PAST SURGICAL HISTORY: Reviewed and agree as charted by RN. SOCIAL HISTORY: Reviewed and agree as charted by RN. FAMILY HISTORY: No significant familial comorbid conditions directly related to patient complaint EXAM: Reviewed vital signs as charted by RN. CONSTITUTIONAL: Alert and oriented and responds appropriately to questions. Disheveled-appearing; well-nourished HEAD: Normocephalic; atraumatic EYES: PERRL; Conjunctivae clear, sclerae non-icteric ENT: normal nose; no rhinorrhea; moist mucous membranes; pharynx without lesions noted, no uvula edema or deviation, no tonsillar hypertrophy, phonation normal NECK: Supple without meningismus; non-tender; no cervical lymphadenopathy, no masses CARD: RRR; no murmurs, no clicks, no rubs, no gallops; symmetric distal pulses RESP: Normal chest excursion without splinting or tachypnea; breath sounds clear and equal bilaterally; no wheezes, no rhonchi, no rales, pulse oximetry 97% on room air not hypoxic ABD/GI: Normal bowel sounds; non-distended; soft, mild tenderness through the right lower quadrant right upper quadrant on palpation; no palpable organomegaly or masses. BACK: The back appears normal and is non-tender to palpation, there is no CVA tenderness EXT: Normal ROM in all joints; non-tender to palpation; no cyanosis, no effusions, no edema SKIN: Normal color for age and race; warm; dry; good turgor; no acute lesions noted NEURO: Moves all extremities equally; Motor and sensory function intact PSYCH: The patient's mood and manner are inappropriate. She does not answer questions directly without being asked 2 or 3 times. She is very demanding and very loud in the room. Grooming and personal hygiene are poor. MDM: 45-year-old female who appears intoxicated and loud brought by EMS for poor responsiveness and intoxication in her vehicle. Patient states she has Crohn's and has right-sided abdominal pain. Given that patient was minimally responsive earlier we will not give patient narcotics will give Toradol. Will obtain CT imaging to evaluate patient's claims of Crohn's flareup. Will obtain screening labs including alcohol and drug screening. She is mildly tachycardic will give IV fluids TRAVEL OUTSIDE OF THE [place] IN LAST 30 DAYS: No - Related Data Allergies/Adverse Reactions: red dye Allergy (Verified 04/09/20 17:28) Past Medical History - Social History Smoking Status: Current Every Day Smoker Chew tobacco use (# tins/day): No Frequency of alcohol use: Heavy Drug Abuse: None Family History: Reviewed & Not Pertinent Patient has homicidal ideation: No - Past Medical History Cardiac Medical History: Denies: Hx Congestive Heart Failure, Hx Heart Attack, Hx Hypertension Pulmonary Medical History: Denies: Hx Asthma, Hx COPD, Hx Respiratory Failure Neurological Medical History: Reports: Hx Seizures Endocrine Medical History: Denies: Hx Diabetes Mellitus Type 2 Psychiatric Medical History: Reports: Hx Depression Past Surgical History: Reports: Hx Section, Hx Genitourinary Surgery - d&c, Hx Hysterectomy, Hx Orthopedic Surgery - bilat ankle Physical Exam - Vital signs Vitals: Temp Pulse Resp BP Pulse Ox 98.4 F 116 H 22 H 147/89 H 95 04/09/20 13:55 04/09/20 13:55 04/09/20 13:55 04/09/20 13:55 04/09/20 13:55 Course - Re-evaluation Re-evalutation: 04/09/20 16:20 Patient continues to act out. She is now telling the nurse that she wants to leave. I have seen the patient ambulate she is intoxicated and not steady on her feet. I spoke with the patient at length. I made her aware that until she has a normal alcohol level here where I can police judge that she is competent to make a decision about her care she cannot leave. She is complaining about severe right lower quadrant pain although nurse indicates that until he woke her up patient was sleeping soundly in the room. I will give the patient a very small dose of further pain medication as well as Ativan given her alcohol use or likely alcohol use and we will reassess 04/09/20 16:58 Patient's alcohol level is 394. She is significantly intoxicated. Awaiting CT imaging results. Patient's other lab work does not show acute emergent abnormalities that are actionable. If CT is negative for acute findings patient may call for a ride for someone to be responsible for her otherwise she will need to stay until clinically sober 04/09/20 17:28 CT is negative for acute findings other than a gluteal hematoma. Positive for marijuana use as well. Patient may be discharged when she is clinically sober or if she has a friend pick her up 04/09/20 17:55 I went back again to speak with the patient at the nurses request because she is insistent on wanting to leave. I spoke with Dr. Granados the attending. Patient is not yet clinically sober. She is able to ambulate her gait has improved but her initial alcohol was 394. Patient may not sign out with a cab she does not have a responsible person for her in doing so. This was explained to the patient. She may call someone to come and pick her up and sign for responsibility for her, she indicates she will call her boyfriend. She is aware that they must come to the emergency department to sign her out. Patient CT imaging was negative. Her other labs are negative. She is not having a Crohn's flareup. She was made aware that she must comply with this as she is not legally able to make a coherent decision on things and if patient continues to act out I will place her on a 24-hour hold until she is completely sober. Patient verbalizes understanding of this. This may be reiterated to the patient ad nauseum by nursing until she has a ride here 04/09/20 20:07 Patient is able to walk in a straight line without a staggered gait at this time. She is able to make her needs appropriately verbalized. She is no longer acting out. Patient states that she would like to take a cab back to her hotel room at this time. Given that her alcohol level has likely been dropping 30 points per hour roughly especially with hydration although she is still intoxicated as she is not driving and is now clinically sober will discharge to follow up with a primary care provider she was given recommendations to stop drinking. We will place her on Protonix which she has been on previously for gastritis - Vital Signs Vital signs: Temp Pulse Resp BP Pulse Ox 98.4 F 112 H 19 145/98 H 100 04/09/20 13:56 04/09/20 17:14 04/09/20 17:14 04/09/20 17:14 04/09/20 17:14 - Laboratory Result Diagrams: 04/09/20 15:56 04/09/20 15:56 Laboratory results interpreted by me: 04/09/20 04/09/20 04/09/20 15:56 15:56 16:05 RBC 3.66 L Hct 35.6 L MCH 33.6 H RDW 17.7 H Lymph % (Auto) 48.5 H Seg Neutrophils % 41.8 L Potassium 3.5 L BUN 5 L Creatinine 0.51 L Glucose 121 H Calcium 7.9 L AST 168 H ALT 77 H Total Protein 6.1 L Albumin 3.2 L Urine Protein 30 H Urine Nitrite POSITIVE H Ur Leukocyte Esterase MODERATE H Serum Alcohol 394 H* Discharge - Discharge Clinical Impression: Marijuana use Alcohol intoxication Qualifiers: Complication of substance-induced condition: uncomplicated Qualified Code(s): F10.920 - Alcohol use, unspecified with intoxication, uncomplicated UTI (urinary tract infection) Qualifiers: Urinary tract infection type: acute cystitis Hematuria presence: without hematuria Qualified Code(s): N30.00 - Acute cystitis without hematuria Alcoholic gastritis Qualifiers: Chronicity: chronic Gastritis bleeding: without bleeding Qualified Code(s): K29.20 - Alcoholic gastritis without bleeding Condition: Stable Disposition: HOME, SELF-CARE Additional Instructions: Take the Keflex to treat the urinary infection that was noted on your urinalysis today. Stop drinking alcohol. Take the Protonix to help with alcoholic gastritis. Prescriptions: Cephalexin Monohydrate [Keflex 500 mg Capsule] 500 mg PO Q6H 7 Days #28 capsule Pantoprazole Sodium [Protonix [address] Tablet] 20 mg PO DAILY #30 tablet.
[2020-04-09 16:05] LABS: ABSOLUTE BASOPHILS # (AUTO) 0.1 10^3/uL (0.0-0.2); ABSOLUTE EOSINOPHILS # (AUTO) 0.1 10^3/uL (0.0-0.6); ABSOLUTE LYMPHOCYTES (AUTO) 2.5 10^3/uL (0.5-4.7); ABSOLUTE MONOCYTES (AUTO) 0.4 10^3/uL (0.1-1.4); ABSOLUTE NEUT (AUTO) 2.1 10^3/uL (1.7-8.2); BASOPHILS % (AUTO) 1.1 % (0-2); HEMATOCRIT 35.6 % (36.0-47.0); HEMOGLOBIN 12.3 g/dL (12.0-15.5); LYMPHOCYTES % (AUTO) 48.5 % (13-45); MEAN CORPUSCULAR HEMOGLOBIN 33.6 pg (27.0-33.4); MEAN CORPUSCULAR HGB CONC 34.5 g/dL (32.0-36.0); MEAN CORPUSCULAR VOLUME 97 fl (80-97); MONOCYTES % (AUTO) 7.6 % (3-13); PLATELET COUNT 430 10^3/uL (150-450); RED BLOOD COUNT 3.66 10^6/uL (3.72-5.28); RED CELL DISTRIBUTION WIDTH 17.7 % (11.5-14.0); SEGMENTED NEUTROPHILS % (AUTO) 41.8 % (42-78); TOTAL CELLS COUNTED % (AUTO) 100 %; WHITE BLOOD COUNT 5.1 10^3/uL (4.0-10.5)
[2020-04-09] MEDS ORDERED: MORPHINE SULFATE 10 MG/ML INJ IV ONE (16:21)
[2020-04-09] MEDS ORDERED: LORAZEPAM INJ 2 MG/1 ML VIAL IV ONE (16:21)
[2020-04-09 16:29] LABS: ALBUMIN 3.2 g/dL (3.5-5.0); ALKALINE PHOSPHATASE 105 U/L (38-126); ANION GAP 10 (5-19); ASPARTATE AMINO TRANSFERASE 168 U/L (14-36); BILIRUBIN,TOTAL 0.2 mg/dL (0.2-1.3); BLOOD UREA NITROGEN 5 mg/dL (7-20); CALCIUM 7.9 mg/dL (8.4-10.2); CARBON DIOXIDE 27 mmol/L (22-30); CHLORIDE 107 mmol/L (98-107); GLUCOSE 121 mg/dL (75-110); POTASSIUM 3.5 mmol/L (3.6-5.0); TOTAL PROTEIN 6.1 g/dL (6.3-8.2)
[2020-04-09 16:48] LABS: ALCOHOL 394 mg/dL (NONE DETECTED)
[2020-04-09 16:57] LABS: APPEARANCE,URINE SLIGHTLY-CLOUDY; BILIRUBIN,URINE NEGATIVE (NEGATIVE); COLOR,URINE YELLOW; GLUCOSE, URINE NEGATIVE (NEGATIVE); KETONES,URINE NEGATIVE (NEGATIVE); LEUKOCYTE ESTERASE,URINE MODERATE (NEGATIVE); NITRITE,URINE POSITIVE (NEGATIVE); PROTEIN,URINE 30 mg/dL (NEGATIVE); URINE SPECIFIC GRAVITY 1.006; UROBILINOGEN,URINE NEGATIVE mg/dL (<2.0)
[2020-04-09] MEDS ORDERED: CEFTRIAXONE 1 GM/D5W RTU 1 GM/50 ML RTUPB IV ONE (16:59)
--- NOTE | 2020-04-09 17:06 | RADIOLOGY REPORT (SQ) ---
EXAM DESCRIPTION: CT ABD/PELVIS WITH IV ONLY IMAGES COMPLETED DATE/TIME: 04/09/2020 4:50 pm REASON FOR STUDY: right abd pain Crohn's hx COMPARISON: CT of the abdomen and pelvis with contrast from 03/31/2020 TECHNIQUE: CT scan of the abdomen and pelvis performed using helical scanning technique with dynamic intravenous contrast injection. No oral contrast. Images reviewed with lung, soft tissue, and bone windows. Reconstructed coronal and sagittal MPR images reviewed. Delayed images for evaluation of the urinary system also acquired. All images stored on PACS. All CT scanners at this facility use dose modulation, iterative reconstruction, and/or weight based d osing when appropriate to reduce radiation dose to as low as reasonably achievable (ALARA). [facility]: Dose Right [facility]: CareDose [facility]: Dose Right [facility]: Teradose 4D [facility]: [employer] CONTRAST TYPE AND DOSE: 100 mL Omnipaque 350- low osmolar. RENAL FUNCTION: None required. The patient is less than 50 years old. RADIATION DOSE: CT Rad equipment meets quality standard of care and radiation dose reduction techniq ues were employed. CTDIvol: 12.0 - 16.8 mGy. DLP: 1651 mGy-cm. LIMITATIONS: None. FINDINGS: LOWER CHEST: No acute findings. LIVER: Hepatic steatosis. The portal veins are patent. There is no hepatic mass. SPLEEN: No splenomegaly or splenic mass. PANCREAS: No acute abnormality of the pancreas. GALLBLADDER: No abnormality that is apparent on CT. ADRENAL GLANDS: No mass or asymmetry. RIGHT KIDNEY AND URETER: No solid masses. No calcifications. No hydronephrosis or hydroureter. LEFT KIDNEY AND URETER: No solid masses. No calcifications. No hydronephrosis or hydroureter. AORTA AND VESSELS: No aneurysm or dissection of the abdominal aorta. RETROPERITONEUM: No retroperitoneal adenopathy, hemorrhage or mass. BOWEL AND PERITONEAL CAVITY: No bowel obstruction, bowel wall thickening or pericolonic/ perienteric inflammation. No mesenteric adenopathy, intra-abdominal abscess, free intraperitoneal fluid or mesen teric/ omental inflammation. APPENDIX: Normal. PELVIS: The uterus is surgically absent. There is no abnormality of the adnexa that is apparent on C T. The urinary bladder is contracted. ABDOMINAL WALL: The subcutaneous hematoma in the right gluteal region has increased in size from the prior CT and it measures 7.3 x 3 cm compared to 6.1 x 2.3 cm ; the attenuation of the hematoma has de creased (it measures 17 Hounsfield units compared to 31.6 Hounsfield units on the prior CT). BONES: Grade 1 anterolisthesis of L4 relative to L5. OTHER: No other finding. IMPRESSION: 1. No acute intra-abdominal abnormality. 2. Evolving subcutaneous hematoma in the right gluteal region that has slightly increased in size fr om the prior CT (it measures 7.3 x 3 cm compared to 6.1 x 2.3 cm). TECHNICAL DOCUMENTATION: JOB ID: [id number] Quality ID # [id number]: Final reports with documentation of one or more dose reduction techniques (e.g., Au tomated exposure control, adjustment of the mA and/or kV according to patient size, use of iterative reconstruction technique) 2010 [employer]- All Rights Reserved Reading location - IP/workstation name: [email or web address]
[2020-04-09 17:14] LABS: URINE AMPHETAMINES SCREEN NEGATIVE; URINE BARBITURATES SCREEN NEGATIVE; URINE BENZODIAZEPINES SCREEN NEGATIVE; URINE COCAINE SCREEN NEGATIVE; URINE METHADONE SCREEN NEGATIVE; URINE PHENCYCLIDINE SCREEN NEGATIVE
[2020-04-09 17:16] LABS: URINE MARIJUANA (THC) SCREEN UNCONFIRMED POSITIVE
[2020-04-09 20:21] VITALS: BP 148/88
== END 2020-04-09 20:21 | disposition home or self-care (01) ==
LOC: ER 13:55
DX: F10.120 Alcohol abuse with intoxication, uncomplicated (principal); Y90.8 Blood alcohol level of 240 mg/100 ml or more; K29.20 Alcoholic gastritis without bleeding; N30.00 Acute cystitis without hematuria; R10.811 Right upper quadrant abdominal tenderness; R00.0 Tachycardia, unspecified; S30.0XXA Contusion of lower back and pelvis, initial encounter; X58.XXXA Exposure to other specified factors, initial encounter; F17.200 Nicotine dependence, unspecified, uncomplicated; Z59.0 Homelessness; Z91.048 Other nonmedicinal substance allergy status
CPT/HCPCS: 99285; 96361; 96365; 36415; 80307 ×2; 83690; 85025; 81025; 80053; 81001; 74177; 96375; J1885; J2270; J2060; J7030; J0696

== ENCOUNTER 2020-05-02 05:27 | Observation (INO) | payer SELFPAY ==
[2020-05-02 06:03] LABS: ABSOLUTE LYMPHOCYTES (AUTO) 2.7 10^3/uL (0.5-4.7); ABSOLUTE MONOCYTES (AUTO) 0.8 10^3/uL (0.1-1.4); ABSOLUTE NEUT (AUTO) 3.3 10^3/uL (1.7-8.2); BASOPHILS % (AUTO) 0.4 % (0-2); EOSINOPHILS % (AUTO) 0.6 % (0-6); HEMATOCRIT 38.7 % (36.0-47.0); HEMOGLOBIN 13.3 g/dL (12.0-15.5); LYMPHOCYTES % (AUTO) 39.6 % (13-45); MEAN CORPUSCULAR HEMOGLOBIN 34.3 pg (27.0-33.4); MEAN CORPUSCULAR HGB CONC 34.4 g/dL (32.0-36.0); MEAN CORPUSCULAR VOLUME 100 fl (80-97); MONOCYTES % (AUTO) 11.4 % (3-13); PLATELET COUNT 333 10^3/uL (150-450); RED BLOOD COUNT 3.89 10^6/uL (3.72-5.28); RED CELL DISTRIBUTION WIDTH 17.9 % (11.5-14.0); TOTAL CELLS COUNTED % (AUTO) 100 %; WHITE BLOOD COUNT 6.8 10^3/uL (4.0-10.5)
--- NOTE | 2020-05-02 06:13 | RADIOLOGY REPORT (SQ) ---
AP Portable chest: 05/02/2020 5:11 AM CDT History: 45-year old patient with chest pain. Comparison: Chest radiograph performed 03/31/2020. Findings: The cardiomediastinal silhouette is normal in size. No pneumothorax is seen. No acute airspace opacities are seen. No discrete pleural effusion is apparent. Impression: No acute airspace opacities are seen.
[2020-05-02 06:15] LABS: ALBUMIN 3.5 g/dL (3.5-5.0); ALKALINE PHOSPHATASE 107 U/L (38-126); ANION GAP 14 (5-19); ASPARTATE AMINO TRANSFERASE 172 U/L (14-36); BILIRUBIN,DIRECT 0.1 mg/dL (0.0-0.4); BILIRUBIN,TOTAL 0.4 mg/dL (0.2-1.3); BLOOD UREA NITROGEN 4 mg/dL (7-20); CALCIUM 10.4 mg/dL (8.4-10.2); CARBON DIOXIDE 22 mmol/L (22-30); CHLORIDE 96 mmol/L (98-107); CREATINE KINASE 33 U/L (30-135); GLUCOSE 138 mg/dL (75-110); TOTAL PROTEIN 6.5 g/dL (6.3-8.2)
[2020-05-02] MEDS ORDERED: ONDANSETRON HCL INJ/PF 4 MG/2 ML SDV IV ONE (06:19)
[2020-05-02] MEDS ORDERED: PANTOPRAZOLE SODIUM 40 MG VIAL IV ONE (06:20)
[2020-05-02] MEDS ORDERED: LORAZEPAM INJ 2 MG/1 ML VIAL IV ONE (06:20)
[2020-05-02 06:23] LABS: POTASSIUM 2.7 mmol/L (3.6-5.0)
[2020-05-02 06:25] LABS: CREATINE KINASE MB 0.46 ng/mL (<4.55)
[2020-05-02 06:26] LABS: TROPONIN I < 0.012 ng/mL
[2020-05-02] MEDS ORDERED: NORMAL SALINE 1000 ML 1,000 ML IV ONE (06:26)
[2020-05-02] MEDS ORDERED: POTASSI CL 20 MEQ/50 ML RIDER 20 MEQ/50 ML RTUPB IV ONE ×2 (06:26→16:42)
--- NOTE | 2020-05-02 06:28 | ER Document Report ---
ED General - General Chief Complaint: Chest Pain Stated Complaint: CHEST PAIN Time Seen by Provider: 05/02/20 06:11 TRAVEL OUTSIDE OF THE [place] IN LAST 30 DAYS: No - HPI Notes: Chief complaint: Chest pain History of present illness: 45-year-old female presenting via EMS for evaluation of chest pain. Patient has no known history of coronary disease. She does have a history of GERD and takes Prilosec. She states that [place] the [place] and has been consuming wine 3 to 4 glasses a day. She awakened this morning with burning epigastric retrosternal pain radiating through to her back. She has had nausea and vomiting. No hematemesis. Mildly diaphoretic. EMS gave aspirin orally and 1 sublingual nitroglycerin with minimal improvement in her discomfort. Patient smokes pack cigarettes per day. She is not diabetic. No history of hypertension. No history of hyperlipidemia. Father with coronary disease. Patient denies use of cocaine. She denies any known history of thromboembolic disease and no one in her family has had thromboembolic disease. HEART Score: HISTORY 1 ECG 1 AGE 0 RISK FACTORS 1 TROPONIN 0 TOTAL: If HEART score is = 3 AND both tronponin measurments are normal, the 30 day risk of a major adverse cardiac event (all-cause mortality, myocardia infarction or need for coronary revscularization) is < 1% (Sensitivity 100%, NPV 100%). - Related Data Allergies/Adverse Reactions: red dye Allergy (Verified 04/09/20 17:28) Home Medications: Prilosec Past Medical History - General Information source: Patient, [facility] Records - Social History Smoking Status: Current Every Day Smoker Frequency of alcohol use: Occasional Drug Abuse: Marijuana Family History: Reviewed & Not Pertinent Patient has homicidal ideation: No - Past Medical History Cardiac Medical History: Denies: Hx Congestive Heart Failure, Hx Coronary Artery Disease, Hx DVT, Hx Heart Attack, Hx Hypertension, Hx Pulmonary Embolism Pulmonary Medical History: Denies: Hx Asthma, Hx COPD, Hx Respiratory Failure Neurological Medical History: Reports: Hx Seizures Endocrine Medical History: Denies: Hx Diabetes Mellitus Type 2 Psychiatric Medical History: Reports: Hx Depression Past Surgical History: Reports: Hx Section, Hx Genitourinary Surgery - d&c, Hx Hysterectomy, Hx Orthopedic Surgery - bilat ankle Review of Systems - Review of Systems Notes: Constitutional: Negative for fever. HENT: Negative for sore throat. Eyes: Negative for visual changes. Cardiovascular: As per HPI. Respiratory: Negative for shortness of breath. Gastrointestinal: As per HPI. Genitourinary: Negative for dysuria. Musculoskeletal: Negative for back pain. Skin: Negative for rash. Neurological: Negative for headaches, weakness or numbness. 10 point ROS negative except as marked above and in HPI. Physical Exam - Vital signs Vitals: Temp 97.6 F 05/02/20 05:45 - Notes Notes: GENERAL: Middle-age female who appears somewhat unkempt. Actively vomiting. Complaining of burning sensation in chest and abdomen. SKIN: Good turgor. Patient has sunburn and multiple abrasions noted over both lower extremities pretibial area. HEAD: Normocephalic atraumatic. EYES: PERRLA. EOMI. Conjunctivae and sclerae clear. EARS: CANALS AND TMS CLEAR. NOSE: CLEAR. MOUTH: Moist mucosa. Good dentition. No stridor or edema. No drooling. NECK: Supple. No masses or thyromegaly. No adenopathy. Carotids 2+ without bruits. No JVD. BACK: Symmetrical without tenderness. CHEST: Diffuse anterior chest wall tenderness. Respirations unlabored. Breath sounds clear and symmetrical. HEART: Regular rhythm. No murmur gallop or rub. ABDOMEN: Mild epigastric tenderness. Soft without masses, organomegaly or rebound. Bowel sounds normally active. No bruits. GENITALIA: Deferred. EXTREMITIES: No edema. No calf tenderness. Cap refill less than 1.5 seconds. Dorsalis pedis and posterior tibial pulses 3+ and symmetrical. NEUROLOGICAL: Mildly tremulous. GCS 15. Alert and oriented x3. Fluent speech. Cranial nerves II through XII intact. Sensorimotor and cerebellar normal. Normal tone. PSYCHIATRIC: Anxious affect. Course - Re-evaluation Re-evalutation: 05/02/20 07:37 Patient is hypokalemic and hypomagnesemic. We are supplementing both of these intravenously. Her alcohol here was 11. I think this lady has some mild alcohol withdrawal symptoms at this point. We note that her CBC shows macrocytic indices consistent with chronic alcohol abuse and she also has some elevation of her transaminases consistent with alcoholic hepatitis. Her initial troponin is normal. Her d-dimer was mildly elevated we will going get a chest CT to rule out PE although I doubt she has this. I think most of her current findings are due to alcohol abuse and associated metabolic depletion. We will continue supportive care and complete work-up as previously outlined. 05/02/20 13:55 2 troponins negative. Second EKG showed no interval change. She continues to vomit intermittently. Her repeat potassium came up to 3.3. She does not want to go home. I presented her to Dr. Lamb of the hospitalist service for admission but he states he wishes to see the patient before he will accept her for admission. 05/02/20 14:34 Dr. Lamb has seen the patient and says he is unwilling to admit her at this time. I pointed out to him that she has elevations of transaminases consistent with alcoholic hepatitis and is reporting to us ongoing vomiting with a potassium of 3.3 despite earlier supplementation. I would feel that she would require at least observation or alternatively he may wish to discharge patient himself. He states he is unwilling to do this. I have spoken with Dr. Odonnell who says he will accept the patient for admission to telemetry at this time. - Vital Signs Vital signs: Temp Pulse Resp BP Pulse Ox 97.6 F 19 148/87 H 99 05/02/20 05:45 05/02/20 13:03 05/02/20 13:03 05/02/20 13:03 - Laboratory Result Diagrams: 05/02/20 05:41 05/02/20 11:01 Laboratory results interpreted by me: 05/02/20 05/02/20 05/02/20 05:41 05:41 05:41 MCV 100 H MCH 34.3 H RDW 17.9 H D-Dimer 0.60 H Sodium 131.9 L Potassium 2.7 L* Chloride 96 L BUN 4 L Creatinine Glucose 138 H Calcium 10.4 H Magnesium AST 172 H ALT 64 H 05/02/20 05/02/20 05:41 11:01 MCV MCH RDW D-Dimer Sodium 130.7 L Potassium 3.3 L Chloride BUN 6 L Creatinine 0.49 L Glucose Calcium Magnesium 1.5 L AST ALT - EKG Interpretation by Me Additional EKG results interpreted by me: 05/02/20 06:32 Twelve-lead EKG from 0537 hrs. reviewed contemporaneously by me showing sinus tachycardia with a rate of 101 with occasional PACs present. QRS axis is normal at +59 degrees. Intervals are normal. Mild somatic tremor artifact is present. There are no acute ST/T wave changes. There is no significant interval change compared with prior tracing from 03/31/2020. Indication for current study: Chest pain. 05/02/20 11:35 Second EKG obtained at 1108 hrs. is reviewed contemporaneously by me demonstrating normal sinus rhythm with a rate of 87 and some somatic tremor artifact present. Normal QRS axis of +66 degrees. Normal intervals. No acute ST/T wave changes present. Indication for current study: Chest pain. Discharge - Discharge Clinical Impression: Alcoholic hepatitis, Hypokalemia, Hypomagnesemia Alcoholic gastritis Qualifiers: Chronicity: acute Gastritis bleeding: without bleeding Qualified Code(s): K29.20 - Alcoholic gastritis without bleeding Chest pain Qualifiers: Chest pain type: unspecified Qualified Code(s): R07.9 - Chest pain, unspecified Alcohol withdrawal Qualifiers: Complication of substance-induced condition: uncomplicated Qualified Code(s): F10.230 - Alcohol dependence with withdrawal, uncomplicated Condition: Fair Disposition: ADMITTED INPATIENT Admitting Provider: Blas (Hospitalist) Unit Admitted: Telemetry
[2020-05-02] MEDS: MAGNESIUM SULFATE/D5W 1 GM/100 ML RTUPB IV SCH ×2 (08:45→09:51)
--- NOTE | 2020-05-02 08:48 | RADIOLOGY REPORT (SQ) ---
EXAM DESCRIPTION: CTA CHEST IMAGES COMPLETED DATE/TIME: 05/02/2020 8:20 am REASON FOR STUDY: Chest pain and elevated d-dimer COMPARISON: None. TECHNIQUE: CT scan of the chest performed using helical scanning technique with dynamic intravenous contrast injection. Images reviewed with lung, soft tissue and bone windows. Reconstructed coronal and sagittal MPR images reviewed. Additional 3 dimensional post-processing performed to develop Maximal Intensity Projection images (AZ P). All images stored on PACS. All CT scanners at this facility use dose modulation, iterative reconstruction, and/or weight based d osing when appropriate to reduce radiation dose to as low as reasonably achievable (ALARA). [facility]: Dose Right [facility]: CareDose [facility]: Dose Right [facility]: Teradose 4D [facility]: [employer] CONTRAST TYPE AND DOSE: contrast/concentration: Isovue 350.00 mmol/ml; Total Contrast Delivered: 60. 0 ml; Total Saline Delivered: 80.0 ml Contrast bolus adequate for pulmonary arteries and aorta. RENAL FUNCTION: GFR > 60. RADIATION DOSE: CT Rad equipment meets quality standard of care and radiation dose reduction techniq ues were employed. CTDIvol: 14.9 - 16.5 mGy. DLP: 607 mGy-cm. . LIMITATIONS: None. FINDINGS: LUNGS AND PLEURA: No masses, infiltrates, or pneumothorax. No pleural effusions or pleura l calcifications. AORTA AND GREAT VESSELS: Normal. No evidence of aneurysm or dissection. Patent great vessel origins . HEART: No pericardial effusion. No significant coronary artery calcifications. PULMONARY ARTERIES: No emboli visualized in the main pulmonary arteries or the segmental branches. HILAR AND MEDIASTINAL STRUCTURES: No identified masses or abnormal nodes. HARDWARE: None in the chest. UPPER ABDOMEN: Diffusely fatty liver. Incomplete evaluation of the abdomen. THYROID AND OTHER SOFT TISSUES: No masses. No adenopathy. BONES: No acute or significant finding. 3D MIPS: Confirm above findings. OTHER: No other significant finding. IMPRESSION: 1. Normal CTA of the chest. No pulmonary embolus or aortic disease. Lungs clear. 2. Hepatic steatosis. COMMENT: Quality ID # [id number]: Final reports with documentation of one or more dose reduction techniques (e.g., Automated exposure control, adjustment of the mA and/or kV according to patient size, use of iterative reconstruction technique) TECHNICAL DOCUMENTATION: JOB ID: [id number] [employer] All Rights Reserved Reading location - IP/workstation name: [email or web address]
[2020-05-02 10:04] LABS: URINE AMPHETAMINES SCREEN NEGATIVE; URINE BARBITURATES SCREEN NEGATIVE; URINE BENZODIAZEPINES SCREEN NEGATIVE; URINE COCAINE SCREEN NEGATIVE; URINE MARIJUANA (THC) SCREEN NEGATIVE; URINE METHADONE SCREEN NEGATIVE; URINE PHENCYCLIDINE SCREEN NEGATIVE
[2020-05-02 11:43] LABS: ANION GAP 9 (5-19); BLOOD UREA NITROGEN 6 mg/dL (7-20); CALCIUM 8.9 mg/dL (8.4-10.2); CARBON DIOXIDE 24 mmol/L (22-30); CHLORIDE 98 mmol/L (98-107); GLUCOSE 106 mg/dL (75-110); POTASSIUM 3.3 mmol/L (3.6-5.0)
[2020-05-02] MEDS ORDERED: MORPHINE SULFATE 10 MG/ML INJ IV ONE (13:36)
[2020-05-02] MEDS ORDERED: METOCLOPRAMIDE HCL INJ/PF 10 MG/2 ML SDV IV ONE (13:36)
[2020-05-02] MEDS ORDERED: ACETAMINOPHEN 325 MG TABLET PO PRN (16:19)
[2020-05-02] MEDS ORDERED: PROMETHAZINE HCL INJ 25 MG/1 ML VIAL IV PRN (16:19)
[2020-05-02] MEDS ORDERED: MAG HYDROX/AL HYDROX/SIMETH SUSP 30 ML UDCUP PO PRN (16:19)
[2020-05-02] MEDS ORDERED: ACETAMINOPHEN 650 MG SUPP.RECT PR PRN (16:19)
[2020-05-02] MEDS ORDERED: SIMETHICONE 80 MG TAB.CHEW PO PRN (16:38)
--- NOTE | 2020-05-02 16:54 | PDOC H&P ---
History of Present Illness Admission Date/PCP: 05/02/20 14:55 Patient complains of: Abdominal pain nausea and vomiting History of Present Illness: DIGNA BEAVER is a 45 year old female who was admitted by me on March 22. She was discharged on March 25. She is back in the emergency department on March 31 with the same complaints. She then returned on April 09 intoxicated with similar complaints. She presents today with similar complaints. The patient is known to be manipulative. She did have hypokalemia and hypomagnesemia. Her potassium was not corrected all the way to the normal range. Her magnesium was 1.5 and she received 1 g of magnesium sulfate which would have put her in the normal range. In addition to alcohol the patient uses ibuprofen and this combination is the reason for her gastritis that does not go away. Also on discharge she is not compliant with the medication regimen. She complains of nausea and vomiting yet the nurse reports that she ate multiple packets of peanut butter crackers. She only received 1 L of fluid in the emergency department over 8 hours. She received 20 mEq of potassium which unfortunately did not correct her potassium deficit. Emergency department physician referred the patient for admission. We will admit the patient and continue to correct her electrolyte abnormalities and provide maximum treatment for her gastritis. Past Medical History Cardiac Medical History: Denies: Congestive Heart Failure, Coronary Artery Disease, DVT, Myocardial Infarction, Hypertension, Pulmonary Embolism Pulmonary Medical History: Denies: Asthma, Chronic Obstructive Pulmonary Disease (COPD), Respiratory Failure Neurological Medical History: Reports: Seizures Endocrine Medical History: Denies: Diabetes Mellitus Type 2 Renal/ Medical History: Reports: Other - Chronic hyponatremia GI Medical History: Reports: Other - Chronic gastritis from alcohol and NSAID use Psychiatric Medical History: Reports: Alcohol Dependency, Depression, Tobacco Dependency Traumatic Medical History: Reports: Traumatic Brain Injury - Reports that she had a head injury years ago. She had seizures at the time Past Surgical History Past Surgical History: Reports: Section, Hysterectomy, Orthopedic Surgery - bilat ankle Social History Information Source: Patient, [facility] Smoking Status: Current Every Day Smoker Electronic Cigarette use?: No Frequency of Alcohol Use: Heavy Hx Recreational Drug Use: No Drugs: None Hx Prescription Drug Abuse: No - Advance Directive Resuscitation Status: Full Code Family History Family History: Reviewed & Not Pertinent Parental Family History Reviewed: Yes Children Family History Reviewed: NA Sibling(s) Family History Reviewed.: Yes Medication/Allergy Home Medications: Omeprazole Magnesium [Prilosec Otc] 40 mg PO DAILY 03/23/20 Ibuprofen [Motrin 600 mg Tablet] 600 mg PO Q8HP PRN 05/02/20 Allergies/Adverse Reactions: red dye Allergy (Verified 04/09/20 17:28) Review of Systems All systems: reviewed and no additional remarkable complaints except as stated Gastrointestinal: PRESENT: abdominal pain, diarrhea, nausea, vomiting Physical Exam Vital Signs: Temp Pulse Resp BP Pulse Ox 98.5 F 19 129/78 H 99 05/02/20 15:54 05/02/20 16:01 05/02/20 16:01 05/02/20 14:01 Intake & Output 05/01/20 05/02/20 05/03/20 06:59 06:59 06:59 Intake Total 1250 Balance 1250 Weight 80.286 kg General appearance: PRESENT: mild distress Head exam: PRESENT: atraumatic, normocephalic Respiratory exam: PRESENT: clear to auscultation connor, symmetrical, unlabored. A BSENT: rales, rhonchi, tachypnea, wheezes Cardiovascular exam: PRESENT: RRR, +S1, +S2, systolic murmur - Borderline tachycardia GI/Abdominal exam: PRESENT: hyperactive bowel sounds, soft, tenderness Rectal exam: PRESENT: deferred Extremities exam: ABSENT: pedal edema Musculoskeletal exam: PRESENT: ambulatory, normal inspection Neurological exam: PRESENT: alert, awake, oriented to person, oriented to place, oriented to time, oriented to situation, CN II-XII grossly intact Psychiatric exam: PRESENT: anxious, flat affect. ABSENT: agitated Focused psych exam: ABSENT: delusional, paranoid, restlessness Skin exam: PRESENT: cyanosis, normal color - Patient actually has a bit of a suntan [place] the [place] for the last 4 days, urticaria Results Laboratory Results: 05/02/20 05:41 05/02/20 11:01 05/02/20 05/02/20 05/02/20 05:41 05:41 05:41 WBC 6.8 RBC 3.89 Hgb 13.3 Hct 38.7 MCV 100 H MCH 34.3 H MCHC 34.4 RDW 17.9 H Plt Count 333 Seg Neutrophils % 48.0 Sodium 131.9 L Potassium 2.7 L* Chloride 96 L Carbon Dioxide 22 Anion Gap 14 BUN 4 L Creatinine 0.56 Est GFR ( Amer) > 60 Glucose 138 H Calcium 10.4 H Magnesium 1.5 L Total Bilirubin 0.4 AST 172 H Alkaline Phosphatase 107 Total Protein 6.5 Albumin 3.5 Lipase 144.1 05/02/20 11:01 WBC RBC Hgb Hct MCV MCH MCHC RDW Plt Count Seg Neutrophils % Sodium 130.7 L Potassium 3.3 L Chloride 98 Carbon Dioxide 24 Anion Gap 9 BUN 6 L Creatinine 0.49 L Est GFR ( Amer) > 60 Glucose 106 Calcium 8.9 Magnesium Total Bilirubin AST Alkaline Phosphatase Total Protein Albumin Lipase 05/02/20 05/02/20 05/02/20 05:41 05:41 11:01 Creatine Kinase 33 CK-MB (CK-2) 0.46 Troponin I < 0.012 < 0.012 Impressions: Chest/Abdomen CTA 05/02/20 07:30 IMPRESSION: 1. Normal CTA of the chest. No pulmonary embolus or aortic disease. Lungs clear. 2. Hepatic steatosis. Assessment and Plan - Diagnosis (1) Alcoholic gastritis Qualifiers: Chronicity: acute Gastritis bleeding: without bleeding Qualified Code(s): K29.20 - Alcoholic gastritis without bleeding Is this a current diagnosis for this admission?: Yes Plan: 05/02/2020She likely has esophagitis as well. This is what caused the chest pain. Again the gastritis with upper GI symptoms are consistent with every visit. (2) Nausea and vomiting Qualifiers: Vomiting type: unspecified Vomiting Intractability: non-intractable Qualified Code(s): R11.2 - Nausea with vomiting, unspecified Is this a current diagnosis for this admission?: Yes Plan: 05/02/2020 This is secondary to her NSAID use and her alcoholism as well as noncompliance with proton pump inhibitor therapy. (3) Hyponatremia Is this a current diagnosis for this admission?: Yes Plan: 05/02/2020 This is chronic for this patient. She always has low sodium when admitted or evaluated at this hospital. This is likely due to her alcoholism and liver disease. (4) Hypokalemia Is this a current diagnosis for this admission?: Yes Plan: 05/02/2020 Secondary to nausea with vomiting, diarrhea and poor nutrition (5) Alcoholism /alcohol abuse Is this a current diagnosis for this admission?: Yes Plan: 05/02/2020 This is an ongoing problem for this patient. On March 31 Dr. Elizabeth referred her to the [facility]. I questioned her about this. She never went. She states she lost the paper and made multiple excuses. (6) Hypomagnesemia Is this a current diagnosis for this admission?: Yes Plan: 05/02/2020 Secondary to vomiting and diarrhea. There is most likely a nutritional component as well. (7) Abnormal transaminases Is this a current diagnosis for this admission?: Yes Plan: 05/02/2020 This is a chronic issue for this patient. This is likely due to her alcoholism. She reports having stopped drinking however on April 09 she had a serum alcohol level of 394. This is by no means an acute episode. - Plan Summary Summary: This is a very manipulative patient. I told her admitting her with the understanding that she is discharging tomorrow. Her electrolytes will be fully corrected by then. She will also receive additional fluid. Most of her emergency department visits stem from noncompliance and continued alcohol use. She reports that her and her fianc are moving to [place] next week. She will be admitted to observation status with the plan on discharge tomorrow. - Time Time Spent with patient: 35 or more minutes Smoking Cessation Education: 3 to 10 minutes Medications reviewed and adjusted accordingly: Yes Anticipated discharge: Home Within: within 24 hours
[2020-05-02] MEDS: MAG HYDROX/AL HYDROX/SIMETH SUSP 30 ML UDCUP PO SCH ×2 (17:34→22:36)
[2020-05-02] MEDS: PANTOPRAZOLE SODIUM 40 MG TABLET.DR PO SCH (17:34)
[2020-05-02] MEDS: DIAZEPAM INJ 10 MG/2 ML DISP.SYRIN IV PRN (17:40)
[2020-05-02] MEDS: NORMAL SALINE 1000 ML 1,000 ML IV PRN (17:54)
--- NOTE | 2020-05-02 18:33 | EKG REPORT ---
SEVERITY:- ABNORMAL ECG - SINUS RHYTHM BORDERLINE INFERIOR Q WAVES : Confirmed by: Elsa Lawrence 02-May-2020 18:32:41
--- NOTE | 2020-05-02 18:34 | EKG REPORT ---
SEVERITY:- ABNORMAL ECG - SINUS TACHYCARDIA MULTIPLE ATRIAL PREMATURE COMPLEXES CONSIDER INFERIOR INFARCT : Confirmed by: Elsa Lawrence 02-May-2020 18:32:55
[2020-05-02] MEDS: SUCRALFATE 1 GM TABLET PO SCH (22:37)
[2020-05-02] MEDS: HEPARIN SOD (PORCINE) 5,000 UNIT/ML 1 ML VIAL SUBCUT SCH (22:37)
[2020-05-03] MEDS: DIAZEPAM INJ 10 MG/2 ML DISP.SYRIN IV PRN ×3 (00:02→13:31)
[2020-05-03] MEDS: NORMAL SALINE 1000 ML 1,000 ML IV PRN ×2 (00:13→05:30)
[2020-05-03] MEDS: PANTOPRAZOLE SODIUM 40 MG TABLET.DR PO SCH (05:18)
[2020-05-03] MEDS: MAG HYDROX/AL HYDROX/SIMETH SUSP 30 ML UDCUP PO SCH ×2 (05:18→09:35)
[2020-05-03] MEDS: HEPARIN SOD (PORCINE) 5,000 UNIT/ML 1 ML VIAL SUBCUT SCH (05:19)
[2020-05-03 06:16] LABS: ANION GAP 7 (5-19); BLOOD UREA NITROGEN 7 mg/dL (7-20); CARBON DIOXIDE 22 mmol/L (22-30); CHLORIDE 104 mmol/L (98-107); GLUCOSE 90 mg/dL (75-110)
[2020-05-03] MEDS: SUCRALFATE 1 GM TABLET PO SCH ×2 (09:35→10:36)
[2020-05-03] MEDS ORDERED: LOPERAMIDE HCL 2 MG CAPSULE PO PRN (09:37)
[2020-05-03] MEDS ORDERED: LOPERAMIDE HCL 2 MG CAPSULE PO ONE (10:30)
--- NOTE | 2020-05-03 11:00 | PDOC DISCHARGE SUMMARY ---
Impression - Admit/DC Date/PCP Admission Date/Primary Care Provider: 05/02/20 14:55 Discharge Date: 05/03/20 - Discharge Diagnosis (1) Alcoholic gastritis Is this a current diagnosis for this admission?: Yes (2) Nausea and vomiting Is this a current diagnosis for this admission?: Yes (3) Hyponatremia Is this a current diagnosis for this admission?: Yes (4) Hypokalemia Is this a current diagnosis for this admission?: Yes (5) Alcoholism /alcohol abuse Is this a current diagnosis for this admission?: Yes (6) Hypomagnesemia Is this a current diagnosis for this admission?: Yes (7) Abnormal transaminases Is this a current diagnosis for this admission?: Yes (8) Crohn's disease (regional enteritis) Is this a current diagnosis for this admission?: Yes - Assessment Summary: This is a very manipulative patient. I told her admitting her with the understanding that she is discharging tomorrow. Her electrolytes will be fully corrected by then. She will also receive additional fluid. Most of her emergency department visits stem from noncompliance and continued alcohol use. She reports that her and her fianc are moving to [place] next week. She will be admitted to observation status with the plan on discharge tomorrow. - Additional Information Resuscitation Status: Full Code Discharge Diet: As Tolerated, Regular Discharge Activity: Activity As Tolerated Referrals: [facility] [NO LOCAL MD] - Prescriptions: Prednisone [Deltasone 20 mg Tablet] 20 mg PO DAILY 5 Days #5 tablet Home Medications: Omeprazole Magnesium [Prilosec Otc] 40 mg PO DAILY 03/23/20 Ibuprofen [Motrin 600 mg Tablet] 600 mg PO Q8HP PRN 05/02/20 Prednisone [Deltasone 20 mg Tablet] 20 mg PO DAILY 5 Days #5 tablet 05/03/20 History of Present Illiness History of Present Illness: DIGNA BEAVER is a 45 year old female who was admitted by me on March 22. She was discharged on March 25. She is back in the emergency department on March 31 with the same complaints. She then returned on April 09 intoxicated with similar complaints. She presents today with similar complaints. The patient is known to be manipulative. She did have hypokalemia and hypomagnesemia. Her potassium was not corrected all the way to the normal range. Her magnesium was 1.5 and she received 1 g of magnesium sulfate which would have put her in the normal range. In addition to alcohol the patient uses ibuprofen and this combination is the reason for her gastritis that does not go away. Also on discharge she is not compliant with the medication regimen. She complains of nausea and vomiting yet the nurse reports that she ate multiple packets of peanut butter crackers. She only received 1 L of fluid in the emergency department over 8 hours. She received 20 mEq of potassium which unfortunately did not correct her potassium deficit. Emergency department physician referred the patient for admission. We will admit the patient and continue to correct her electrolyte abnormalities and provide maximum treatment for her gastritis. Hospital Course Hospital Course: Feeling better with IV fluids and electrolyte replacement. Stool studies ordered. We will follow-up as needed. Prednisone daily for 5 more days for probable Crohn's enteritis Stay well-hydrated Continue acid reduction therapy Establish with primary care in [place] Physical Exam Vital Signs: Temp Pulse Resp BP Pulse Ox 98.2 F 81 20 142/84 H 99 05/03/20 08:00 05/03/20 08:00 05/03/20 08:00 05/03/20 08:00 05/03/20 08:00 Intake & Output 05/02/20 05/03/20 05/04/20 06:59 06:59 06:59 Intake Total 4205 Balance 4205 Weight 80.286 kg 93 kg General appearance: PRESENT: no acute distress Respiratory exam: PRESENT: clear to auscultation connor. ABSENT: rales, rhonchi, wheezes Cardiovascular exam: PRESENT: RRR, +S1, +S2 GI/Abdominal exam: PRESENT: normal bowel sounds, soft Results Laboratory Results: WBC 6.8 10^3/uL (4.0-10.5) 05/02/20 05:41 RBC 3.89 10^6/uL (3.72-5.28) 05/02/20 05:41 Hgb 13.3 g/dL (12.0-15.5) 05/02/20 05:41 Hct 38.7 % (36.0-47.0) 05/02/20 05:41 MCV 100 fl (80-97) H 05/02/20 05:41 MCH 34.3 pg (27.0-33.4) H 05/02/20 05:41 MCHC 34.4 g/dL (32.0-36.0) 05/02/20 05:41 RDW 17.9 % (11.5-14.0) H 05/02/20 05:41 Plt Count 333 10^3/uL (150-450) 05/02/20 05:41 Lymph % (Auto) 39.6 % (13-45) 05/02/20 05:41 [place] % (Auto) 11.4 % (3-13) 05/02/20 05:41 Eos % (Auto) 0.6 % (0-6) 05/02/20 05:41 Baso % (Auto) 0.4 % (0-2) 05/02/20 05:41 Absolute Neuts (auto) 3.3 10^3/uL (1.7-8.2) 05/02/20 05:41 Absolute Lymphs (auto) 2.7 10^3/uL (0.5-4.7) 05/02/20 05:41 Absolute Monos (auto) 0.8 10^3/uL (0.1-1.4) 05/02/20 05:41 Absolute Eos (auto) 0.0 10^3/uL (0.0-0.6) 05/02/20 05:41 Absolute Basos (auto) 0.0 10^3/uL (0.0-0.2) 05/02/20 05:41 Seg Neutrophils % 48.0 % (42-78) 05/02/20 05:41 D-Dimer 0.60 ug/mL (0.00-0.50) H 05/02/20 05:41 Sodium 133.1 mmol/L (137-145) L 05/03/20 05:11 Potassium 4.0 mmol/L (3.6-5.0) 05/03/20 05:11 Chloride 104 mmol/L (98-107) 05/03/20 05:11 Carbon Dioxide 22 mmol/L (22-30) 05/03/20 05:11 Anion Gap 7 (5-19) 05/03/20 05:11 BUN 7 mg/dL (7-20) 05/03/20 05:11 Creatinine 0.53 mg/dL (0.52-1.25) 05/03/20 05:11 Est GFR ( Amer) > 60 (>60) 05/03/20 05:11 Est GFR (MDRD) Non-Af > 60 (>60) 05/03/20 05:11 Glucose 90 mg/dL (75-110) 05/03/20 05:11 Calcium 8.0 mg/dL (8.4-10.2) L 05/03/20 05:11 Magnesium 1.9 mg/dL (1.6-2.3) 05/03/20 05:11 Total Bilirubin 0.4 mg/dL (0.2-1.3) 05/02/20 05:41 Direct Bilirubin 0.1 mg/dL (0.0-0.4) 05/02/20 05:41 Neonat Total Bilirubin Not Reportable 05/02/20 05:41 Neonat Direct Bilirubin Not Reportable 05/02/20 05:41 Neonat Indirect Bili Not Reportable 05/02/20 05:41 AST 172 U/L (14-36) H 05/02/20 05:41 ALT 64 U/L (<35) H 05/02/20 05:41 Alkaline Phosphatase 107 U/L (38-126) 05/02/20 05:41 Creatine Kinase 33 U/L (30-135) 05/02/20 05:41 CK-MB (CK-2) 0.46 ng/mL (<4.55) 05/02/20 05:41 Troponin I < 0.012 ng/mL 05/02/20 11:01 Total Protein 6.5 g/dL (6.3-8.2) 05/02/20 05:41 Albumin 3.5 g/dL (3.5-5.0) 05/02/20 05:41 Lipase 144.1 U/L (23-300) 05/02/20 05:41 Urine Opiates Screen NEGATIVE 05/02/20 09:32 Urine Methadone Screen NEGATIVE 05/02/20 09:32 Ur Barbiturates Screen NEGATIVE 05/02/20 09:32 Ur Phencyclidine Scrn NEGATIVE 05/02/20 09:32 Ur Amphetamines Screen NEGATIVE 05/02/20 09:32 U Benzodiazepines Scrn NEGATIVE 05/02/20 09:32 Urine Cocaine Screen NEGATIVE 05/02/20 09:32 U Marijuana (THC) Screen NEGATIVE 05/02/20 09:32 Serum Alcohol 11 mg/dL (NONE DETECTED) 05/02/20 05:41 05/02/20 05/02/20 05:41 11:01 CK-MB (CK-2) 0.46 Troponin I < 0.012 < 0.012 Impressions: Chest/Abdomen CTA 05/02/20 07:30 IMPRESSION: 1. Normal CTA of the chest. No pulmonary embolus or aortic disease. Lungs clear. 2. Hepatic steatosis. Plan Health Concerns: Lack of primary care provider. Must cease use of alcohol. Medication compliance due to lack of insurance Plan of Treatment: Short course of prednisone for presumed gastritis. Stool studies pending. Goals: Abstinence from alcohol. Resolution of gastritis. Control of Crohn's disease. Time Spent: Greater than 30 Minutes Stroke Is this a Stroke Patient?: No Acute Heart Failure - Is this a Heart Failure Patient?: No
[2020-05-03] MEDS ORDERED: PREDNISONE 20 MG TABLET PO ONE (11:30)
[2020-05-03 20:05] VITALS: BP 137/83
== END 2020-05-03 14:58 | disposition home or self-care (01) ==
LOC: ER 05:27 → INTOOBSV 14:55 → EH 14:55 → 4W 16:20
PROVIDERS: ADMIT Hospitalist; ATTEND Hospitalist
DX: K29.20 Alcoholic gastritis without bleeding (principal); E87.6 Hypokalemia; E83.42 Hypomagnesemia; E87.1 Hypo-osmolality and hyponatremia; F17.210 Nicotine dependence, cigarettes, uncomplicated; K21.9 Gastro-esophageal reflux disease without esophagitis; F10.239 Alcohol dependence with withdrawal, unspecified; K70.10 Alcoholic hepatitis without ascites; K50.90 Crohn's disease, unspecified, without complications; R74.0 Nonspecific elevation of levels of transaminase and lactic acid dehydrogenase [LDH]; F12.10 Cannabis abuse, uncomplicated; Z79.899 Other long term (current) drug therapy; Z91.14 Patient's other noncompliance with medication regimen; L55.9 Sunburn, unspecified; S80.812A Abrasion, left lower leg, initial encounter; S80.811A Abrasion, right lower leg, initial encounter; X58.XXXA Exposure to other specified factors, initial encounter; Z87.820 Personal history of traumatic brain injury; Z82.49 Family history of ischemic heart disease and other diseases of the circulatory system; Z86.69 Personal history of other diseases of the nervous system and sense organs
CPT/HCPCS: 93005; 99285; 96375; 96365; 96366; 96367; 36415 ×2; 82553; 80307 ×2; 82550; 83690; 83735 ×2; 85025; 80048; 80053; 84484; 85379; 71045; 71275; 93010; 99406; J1644 ×2; J3360 ×2; J2765; J2270; J2060; J3475; C9113; J7512; J2550; J2405; J3480; J7030 ×2; J3490 ×2